=== PATIENT | male | born 1960 | race Two or more races ===

== ENCOUNTER 2016-11-27 11:50 | Inpatient (IN) | payer OTHER ==
[2016-11-27 15:26] VITALS: BMI 24.7
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
[2016-11-27] MEDS ORDERED: diphenhydrAMINE HCL 50 MG CAPSULE PO PRN (15:36)
[2016-11-27] MEDS ORDERED: guaiFENesin/D-METHORPHAN HB 10 ML UNIT-DOSE CUPS PO PRN (15:36)
[2016-11-27] MEDS ORDERED: ACETAMINOPHEN 325 MG TABLET (FP) PO PRN (15:36)
[2016-11-27] MEDS ORDERED: hydrOXYzine PAMOATE 50 MG CAPSULE (FP) PO PRN (15:36)
[2016-11-27] MEDS ORDERED: MENTHOL/PHENOL 1 EACH UD MM PRN (15:36)
[2016-11-27] MEDS ORDERED: MAGNESIUM CITRATE 300 ML BOTTLE PO PRN (15:36)
[2016-11-27] MEDS ORDERED: MAGNESIUM HYDROX 2400MG/30ML ORAL SUSPENSION 30 ML CUP PO PRN (15:36)
[2016-11-27] MEDS ORDERED: LOPERAMIDE HCL 2 MG CAPSULE PO PRN (15:36)
[2016-11-27] MEDS ORDERED: IBUPROFEN 400 MG TABLET (FP) PO PRN (15:36)
[2016-11-27] MEDS ORDERED: P-EPHED 60MG/TRIPROLIDI 2.5MG TABLET PO PRN (15:36)
[2016-11-27] MEDS ORDERED: MAG HYDROX/AL HYDROX/SIMETH 30 ML UNIT-DOSE CUP PO PRN (15:36)
[2016-11-27] MEDS ORDERED: NICOTINE POLACRILEX 4 MG GUM BC PRN (15:36)
[2016-11-27] MEDS ORDERED: ALBUTEROL SO4 6.7 GM HFA INHALER IH PRN (15:48)
[2016-11-27] MEDS ORDERED: chlordiazePOXIDE HCL 25 MG CAPSULE PO ONE (16:45)
[2016-11-27] MEDS: chlordiazePOXIDE HCL 25 MG CAPSULE PO SCH ×2 (18:46→22:21)
[2016-11-27] MEDS: THIAMINE HCL 100 MG TABLET (FP) PO SCH (22:21)
[2016-11-27 23:30] LABS: URINE APPEARANCE CLEAR; URINE BILIRUBIN NEGATIVE (NEGATIVE); URINE BLOOD NEGATIVE (NEGATIVE); URINE COLOR YELLOW; URINE GLUCOSE (UA) NEGATIVE (NEGATIVE); URINE KETONE TRACE (NEGATIVE); URINE LEUK ESTERASE NEGATIVE (NEGATIVE); URINE NITRITE NEGATIVE (NEGATIVE); URINE PROTEIN NEGATIVE (NEGATIVE); URINE UROBILINOGEN NEGATIVE E.U./dl (0.2-1.0)
[2016-11-28] MEDS: chlordiazePOXIDE HCL 25 MG CAPSULE PO SCH ×5 (05:28→22:20)
[2016-11-28 10:14] LABS: MCH 31.6 pg (25.7-33.7); MCHC 33.6 g/dl (32.0-35.9); MEAN CELL VOLUME 94.2 fl (80-96); MEAN PLT VOLUME 9.9 fl (7.5-11.1); PLATELET COUNT 288 K/MM3 (134-434); RDW 14.6 % (11.9-15.9); WHITE BLOOD COUNT 5.7 K/mm3 (4.0-10.0)
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
[2016-11-28] MEDS: PRENATAL VITAMINS W/ FOLIC ACID TABLET (FP) PO SCH (10:42)
--- NOTE | 2016-11-28 10:42 | PN ---
S CIWA - CIWA Score Nausea/Vomitin-Mild Nausea/No Vomiting Muscle Tremors: 4-Moderate,w/Arms Extend Anxiety: 3 Agitation: 3 Paroxysmal Sweats: 3 Orientation: 0-Oriented Tacttile Disturbances: 0-None Auditory Disturbances: 0-None Visual Disturbances: 0-None Headache: 0-None Present CIWA-Ar Total Score: 14 S Progress Note (SOAP) Subjective: Anxiety,tremors,sweating,interrupted sleep,restless Objective: 11/28/16 10:40 Vital Signs - 8 hr 11/28/16 11/28/16 11/28/16 03:08 06:26 09:29 Temperature 97.5 F L 96.8 F L Pulse Rate 86 104 H Respiratory 18 18 18 Rate Blood Pressure 132/98 127/89 Laboratory Tests 11/27/16 11/28/16 23:10 06:00 WBC 5.7 D RBC 4.92 Hgb 15.6 D Hct 46.4 MCV 94.2 MCHC 33.6 RDW 14.6 Plt Count 288 D MPV 9.9 Urine Color Yellow Urine Appearance Clear Urine pH 5.0 Ur Specific [place] 1.018 Urine Protein Negative Urine Glucose (UA) Negative Urine Ketones Trace H Urine Blood Negative Urine Nitrite Negative Urine Bilirubin Negative Urine Urobilinogen Negative Ur Leukocyte Esterase Negative labs noted Assessment: 11/28/16 10:41 Withdrawal sx. Plan: Continue detox
[2016-11-28 11:01] LABS: ALK PHOS 83 U/L (45-117); ANION GAP 10 (8-16); BILIRUBIN,TOTAL 1.6 mg/dL (0.2-1.0); CALCIUM 10.1 mg/dL (8.5-10.1); CO2 29 mmol/L (21-32); CREATININE 0.7 mg/dL (0.7-1.3); GLUCOSE,RANDOM 117 mg/dL (74-106); SGOT/AST 23 U/L (15-37); SGPT/ALT 39 U/L (12-78); TOT PROT 7.9 g/dl (6.4-8.2)
[2016-11-28] MEDS: THIAMINE HCL 100 MG TABLET (FP) PO SCH (22:19)
[2016-11-28] MEDS: ZOLPIDEM TARTRATE 5 MG TABLET PO PRN (22:20)
[2016-11-29] MEDS: chlordiazePOXIDE HCL 25 MG CAPSULE PO SCH ×2 (05:28→10:56)
--- NOTE | 2016-11-29 08:29 | EKG ---
Test Reason : Blood Pressure : / mmHG Vent. Rate : 076 BPM Atrial Rate : 076 BPM P-R Int : 158 ms QRS Dur : 104 ms QT Int : 416 ms P-R-T Axes : 049 061 067 degrees QTc Int : 468 ms NORMAL SINUS RHYTHM NORMAL ECG NO PREVIOUS ECGS AVAILABLE Confirmed by JOVANI BOB MD ([id number]) on 11/29/2016 8:28:46 AM Referred By: Confirmed By:JOVANI BOB MD
[2016-11-29] MEDS: PRENATAL VITAMINS W/ FOLIC ACID TABLET (FP) PO SCH (10:56)
[2016-11-29] MEDS: chlordiazePOXIDE HCL 25 MG CAPSULE PO PRN ×2 (12:23→20:15)
--- NOTE | 2016-11-29 12:30 | PN ---
[facility] CIWA - CIWA Score Nausea/Vomitin-Mild Nausea/No Vomiting Muscle Tremors: 3 Anxiety: 4-Mod. Anxious/Guarded Agitation: 2 Paroxysmal Sweats: 1-Minimal Palms Moist Orientation: 0-Oriented Tacttile Disturbances: 2-Mild Itch/Numbness/Burn Auditory Disturbances: 2-Mild Harshness/Frighten Visual Disturbances: 0-None Headache: 0-None Present CIWA-Ar Total Score: 15 BHS Progress Note (SOAP) Subjective: Interrupted sleep, Fatigue, Anxious, Diarrhea. Objective: PT. A & O X 3, OBSERVED AMBULATING ON UNIT. 11/29/16 12:27 Vital Signs Temperature 97.8 F 11/29/16 09:56 Pulse Rate 77 11/29/16 09:56 Respiratory Rate 18 11/29/16 09:56 Blood Pressure 122/86 11/29/16 09:56 O2 Sat by Pulse Oximetry (%) Laboratory Last Values WBC 5.7 K/mm3 (4.0-10.0) D 11/28/16 06:00 RBC 4.92 M/mm3 (4.00-5.60) 11/28/16 06:00 Hgb 15.6 GM/dL (11.7-16.9) D 11/28/16 06:00 Hct 46.4 % (35.4-49) 11/28/16 06:00 MCV 94.2 fl (80-96) 11/28/16 06:00 MCHC 33.6 g/dl (32.0-35.9) 11/28/16 06:00 RDW 14.6 % (11.9-15.9) 11/28/16 06:00 Plt Count 288 K/MM3 (134-434) D 11/28/16 06:00 MPV 9.9 fl (7.5-11.1) 11/28/16 06:00 Sodium 137 mmol/L (136-145) 11/28/16 06:00 Potassium 4.6 mmol/L (3.5-5.1) D 11/28/16 06:00 Chloride 98 mmol/L (98-107) 11/28/16 06:00 Carbon Dioxide 29 mmol/L (21-32) 11/28/16 06:00 Anion Gap 10 (8-16) 11/28/16 06:00 BUN 10 mg/dL (7-18) D 11/28/16 06:00 Creatinine 0.7 mg/dL (0.7-1.3) 11/28/16 06:00 Creat Clearance w eGFR > 60 (>60) 11/28/16 06:00 Random Glucose 117 mg/dL (74-106) H 11/28/16 06:00 Calcium 10.1 mg/dL (8.5-10.1) D 11/28/16 06:00 Total Bilirubin 1.6 mg/dL (0.2-1.0) H 11/28/16 06:00 AST 23 U/L (15-37) 11/28/16 06:00 ALT 39 U/L (12-78) D 11/28/16 06:00 Alkaline Phosphatase 83 U/L (45-117) 11/28/16 06:00 Total Protein 7.9 g/dl (6.4-8.2) D 11/28/16 06:00 Albumin 4.0 g/dl (3.4-5.0) D 11/28/16 06:00 Urine Color Yellow 11/27/16 23:10 Urine Appearance Clear 11/27/16 23:10 Urine pH 5.0 (5.0-8.0) 11/27/16 23:10 Ur Specific [place] 1.018 (1.001-1.035) 11/27/16 23:10 Urine Protein Negative (NEGATIVE) 11/27/16 23:10 Urine Glucose (UA) Negative (NEGATIVE) 11/27/16 23:10 Urine Ketones Trace (NEGATIVE) H 11/27/16 23:10 Urine Blood Negative (NEGATIVE) 11/27/16 23:10 Urine Nitrite Negative (NEGATIVE) 11/27/16 23:10 Urine Bilirubin Negative (NEGATIVE) 11/27/16 23:10 Urine Urobilinogen Negative E.U./dl (0.2-1.0) 11/27/16 23:10 Ur Leukocyte Esterase Negative (NEGATIVE) 11/27/16 23:10 RPR Titer Nonreactive (NONREACTIVE) 11/28/16 06:00 LABS NOTED. Assessment: 11/29/16 12:28 WITHDRAWAL SYMPTOMS. Plan: CONTINUE DETOX. PRN LIBRIUM (25 MG) FOR ANXIETY. ADVISED PATIENT TO FOLLOW-UP WITH [facility] / REHAB MEDICAL PROVIDER AFTER DISCHARGE FROM DETOX FOR GENERAL MEDICAL ASSESSMENT AND FOR ABNORMAL ADMISSION LAB VALUES.
[2016-11-29] MEDS: chlordiazePOXIDE 5 MG CAPSULE PO SCH ×2 (17:10→22:26)
[2016-11-29] MEDS: THIAMINE HCL 100 MG TABLET (FP) PO SCH (22:26)
[2016-11-29] MEDS: ZOLPIDEM TARTRATE 5 MG TABLET PO PRN (22:27)
[2016-11-30] MEDS: chlordiazePOXIDE 5 MG CAPSULE PO SCH (05:36)
[2016-11-30 09:19] VITALS: BP 110/77; PULSE 97; TEMP 96.4
--- NOTE | 2016-11-30 11:16 | DS ---
[facility] Detox Discharge Summary Admission Date: 11/27/16 Discharge Date: 11/30/16 - History Pertinent Past History: Asthma HTN - Physical Exam Results Vital Signs: Vital Signs Temperature 96.4 F L 11/30/16 09:19 Pulse Rate 97 H 11/30/16 09:19 Respiratory Rate 18 11/30/16 09:19 Blood Pressure 110/77 11/30/16 09:19 O2 Sat by Pulse Oximetry (%) Pertinent Admission Physical Exam Findings: Withdrawal sx. Laboratory Last Values WBC 5.7 K/mm3 (4.0-10.0) D 11/28/16 06:00 RBC 4.92 M/mm3 (4.00-5.60) 11/28/16 06:00 Hgb 15.6 GM/dL (11.7-16.9) D 11/28/16 06:00 Hct 46.4 % (35.4-49) 11/28/16 06:00 MCV 94.2 fl (80-96) 11/28/16 06:00 MCHC 33.6 g/dl (32.0-35.9) 11/28/16 06:00 RDW 14.6 % (11.9-15.9) 11/28/16 06:00 Plt Count 288 K/MM3 (134-434) D 11/28/16 06:00 MPV 9.9 fl (7.5-11.1) 11/28/16 06:00 Sodium 137 mmol/L (136-145) 11/28/16 06:00 Potassium 4.6 mmol/L (3.5-5.1) D 11/28/16 06:00 Chloride 98 mmol/L (98-107) 11/28/16 06:00 Carbon Dioxide 29 mmol/L (21-32) 11/28/16 06:00 Anion Gap 10 (8-16) 11/28/16 06:00 BUN 10 mg/dL (7-18) D 11/28/16 06:00 Creatinine 0.7 mg/dL (0.7-1.3) 11/28/16 06:00 Creat Clearance w eGFR > 60 (>60) 11/28/16 06:00 Random Glucose 117 mg/dL (74-106) H 11/28/16 06:00 Calcium 10.1 mg/dL (8.5-10.1) D 11/28/16 06:00 Total Bilirubin 1.6 mg/dL (0.2-1.0) H 11/28/16 06:00 AST 23 U/L (15-37) 11/28/16 06:00 ALT 39 U/L (12-78) D 11/28/16 06:00 Alkaline Phosphatase 83 U/L (45-117) 11/28/16 06:00 Total Protein 7.9 g/dl (6.4-8.2) D 11/28/16 06:00 Albumin 4.0 g/dl (3.4-5.0) D 11/28/16 06:00 Urine Color Yellow 11/27/16 23:10 Urine Appearance Clear 11/27/16 23:10 Urine pH 5.0 (5.0-8.0) 11/27/16 23:10 Ur Specific [place] 1.018 (1.001-1.035) 11/27/16 23:10 Urine Protein Negative (NEGATIVE) 11/27/16 23:10 Urine Glucose (UA) Negative (NEGATIVE) 11/27/16 23:10 Urine Ketones Trace (NEGATIVE) H 11/27/16 23:10 Urine Blood Negative (NEGATIVE) 11/27/16 23:10 Urine Nitrite Negative (NEGATIVE) 11/27/16 23:10 Urine Bilirubin Negative (NEGATIVE) 11/27/16 23:10 Urine Urobilinogen Negative E.U./dl (0.2-1.0) 11/27/16 23:10 Ur Leukocyte Esterase Negative (NEGATIVE) 11/27/16 23:10 RPR Titer Nonreactive (NONREACTIVE) 11/28/16 06:00 labs noted - Treatment Patient has Accepted a Rehab Referral to: 12 step meeting - Medication Discharge Medications: Ambulatory Orders Albuterol Sulfate Inhaler - [Ventolin Hfa Inhaler -] 2 inh PO Q4H PRN 11/27/16 Folic Acid - 1 mg PO DAILY 11/27/16 Multivitamins [Tab-A-Vit -] 1 tab PO DAILY 11/27/16 - Diagnosis (1) Alcohol dependence with uncomplicated withdrawal Status: Acute (2) Insomnia Status: Acute Qualifiers: Insomnia type: alcohol-induced Qualified Code(s): F10.982 - Alcohol use, unspecified with alcohol-induced sleep disorder (3) Nicotine dependence Status: Acute Qualifiers: Nicotine product type: cigarettes Substance use status: uncomplicated Qualified Code(s): F17.210 - Nicotine dependence, cigarettes, uncomplicated (4) Asthma Status: Chronic Qualifiers: Asthma severity: mild intermittent Asthma complication type: uncomplicated Qualified Code(s): J45.20 - Mild intermittent asthma, uncomplicated (5) HTN (hypertension) Status: Chronic Qualifiers: Hypertension type: essential hypertension Qualified Code(s): I10 - Essential (primary) hypertension - AMA Did Patient Leave Against Medical Advice: Yes
[2016-11-30] MEDS ORDERED: chlordiazePOXIDE HCL 10 MG CAPSULE PO SCH (17:00)
== END 2016-11-30 10:37 | disposition left against medical advice (07) | DRG 770 ==
LOC: YASAS 11:50 → Y3N 15:56
PROVIDERS: ADMIT Internal Medicine; ATTEND Internal Medicine
PROC: HZ2ZZZZ Detoxification Services for Substance Abuse Treatment (ICD-10-PCS; principal; 2016-11-27)
DX: F10.230 Alcohol dependence with withdrawal, uncomplicated (principal); F17.210 Nicotine dependence, cigarettes, uncomplicated; G47.00 Insomnia, unspecified; J45.20 Mild intermittent asthma, uncomplicated; J44.9 Chronic obstructive pulmonary disease, unspecified; I10 Essential (primary) hypertension; Z86.69 Personal history of other diseases of the nervous system and sense organs; Z91.5 Personal history of self-harm; Z59.0 Homelessness
CPT/HCPCS: 36415; 80053; 81003; 85027; 86593; 93005; 93010

== ENCOUNTER 2018-02-28 15:59 | Inpatient (IN) | payer OTHER ==
[2018-02-28 16:41] VITALS: BMI 25.1
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
[2018-02-28] MEDS ORDERED: guaiFENesin/D-METHORPHAN HB 10 ML UNIT-DOSE CUPS PO PRN (21:49)
[2018-02-28] MEDS ORDERED: MAGNESIUM HYDROX 2400MG/30ML ORAL SUSPENSION 30 ML CUP PO PRN (21:49)
[2018-02-28] MEDS ORDERED: MAG HYDROX/AL HYDROX/SIMETH 30 ML UNIT-DOSE CUP PO PRN (21:49)
[2018-02-28] MEDS ORDERED: MENTHOL/PHENOL 1 EACH UD MM PRN (21:49)
[2018-02-28] MEDS ORDERED: MAGNESIUM CITRATE 300 ML BOTTLE PO PRN (21:49)
[2018-02-28] MEDS ORDERED: P-EPHED 60MG/TRIPROLIDI 2.5MG TABLET PO PRN (21:49)
[2018-02-28] MEDS ORDERED: ACETAMINOPHEN 325 MG TABLET (FP) PO PRN (21:49)
[2018-02-28] MEDS ORDERED: LOPERAMIDE HCL 2 MG CAPSULE PO PRN (21:49)
[2018-02-28] MEDS ORDERED: MELATONIN 5 MG TABLETS PO PRN (22:00)
[2018-02-28] MEDS: chlordiazePOXIDE HCL 25 MG CAPSULE PO SCH (22:57)
[2018-02-28] MEDS: THIAMINE HCL 100 MG TABLET (FP) PO SCH (22:57)
[2018-03-01] LABS: URINE APPEARANCE CLEAR; URINE BILIRUBIN NEGATIVE (<2.0 mg/dL); URINE COLOR YELLOW; URINE GLUCOSE (UA) NEGATIVE (NEGATIVE); URINE KETONE NEGATIVE (NEGATIVE); URINE LEUK ESTERASE NEGATIVE (NEGATIVE); URINE NITRITE NEGATIVE (NEGATIVE); URINE PROTEIN NEGATIVE (NEGATIVE); URINE UROBILINOGEN NEGATIVE mg/dL (0.2-1.0)
[2018-03-01] MEDS: chlordiazePOXIDE HCL 25 MG CAPSULE PO SCH ×4 (05:44→22:43)
[2018-03-01 09:52] LABS: ALBUMIN 3.4 g/dl (3.4-5.0); ALK PHOS 69 U/L (45-117); ANION GAP 7 (8-16); BILIRUBIN,TOTAL 1.3 mg/dL (0.2-1.0); BLOOD UREA NITROGEN 8 mg/dL (7-18); CALCIUM 8.8 mg/dL (8.5-10.1); CHLORIDE 106 mmol/L (98-107); CO2 31 mmol/L (21-32); CREATININE 0.6 mg/dL (0.7-1.3); GLUCOSE,RANDOM 103 mg/dL (74-106); POTASSIUM 4.3 mmol/L (3.5-5.1); SGOT/AST 29 U/L (15-37); SGPT/ALT 43 U/L (12-78); SODIUM 144 mmol/L (136-145)
[2018-03-01 10:02] LABS: HEMOGLOBIN 13.8 GM/dL (11.7-16.9); MCH 32.1 pg (25.7-33.7); MCHC 33.7 g/dl (32.0-35.9); MEAN CELL VOLUME 95.2 fl (80-96); MEAN PLT VOLUME 9.2 fl (7.5-11.1); PLATELET COUNT 260 K/MM3 (134-434); RDW 14.8 % (11.9-15.9); WHITE BLOOD COUNT 4.6 K/mm3 (4.0-10.0)
[2018-03-01] MEDS: NICOTINE 14 MG/24 HOURS TOPICAL PATCH TD SCH (10:25)
[2018-03-01] MEDS: PRENATAL VITAMINS W/ FOLIC ACID TABLET (FP) PO SCH (10:26)
[2018-03-01] MEDS: NICOTINE POLACRILEX 2 MG GUM BC PRN ×3 (10:26→17:24)
--- NOTE | 2018-03-01 11:20 | PN ---
S CIWA - CIWA Score Nausea/Vomitin (C/O N/V/D) Muscle Tremors: 4-Moderate,w/Arms Extend Anxiety: 4-Mod. Anxious/Guarded Agitation: 3 Paroxysmal Sweats: 1-Minimal Palms Moist Orientation: 0-Oriented Tacttile Disturbances: 0-None Auditory Disturbances: 0-None Visual Disturbances: 0-None Headache: 0-None Present CIWA-Ar Total Score: 17 BHS Progress Note (SOAP) Subjective: C/O ANXIETY,SWEATS,NAUSEA,VOMITING DIARRHEA. Objective: 03/01/18 11:18 Vital Signs 03/01/18 03/01/18 03/01/18 03:30 04:00 04:30 Temperature Pulse Rate 94 H 89 88 Respiratory 18 18 18 Rate Blood Pressure 03/01/18 03/01/18 03/01/18 05:00 05:30 06:00 Temperature Pulse Rate 85 80 69 Respiratory 18 18 18 Rate Blood Pressure 03/01/18 03/01/18 03/01/18 06:14 06:30 07:00 Temperature 98.3 F Pulse Rate 69 71 70 Respiratory 18 18 18 Rate Blood Pressure 127/79 03/01/18 03/01/18 03/01/18 07:30 08:00 08:30 Temperature Pulse Rate 70 68 70 Respiratory 18 18 16 Rate Blood Pressure 03/01/18 09:08 Temperature 98.3 F Pulse Rate 75 Respiratory 16 Rate Blood Pressure 103/67 Laboratory Tests 02/28/18 03/01/18 03/01/18 10:53 07:00 07:00 WBC 4.6 RBC 4.30 Hgb 13.8 Hct 41.0 MCV 95.2 MCH 32.1 MCHC 33.7 RDW 14.8 Plt Count 260 MPV 9.2 Sodium 144 Potassium 4.3 Chloride 106 Carbon Dioxide 31 Anion Gap 7 L BUN 8 Creatinine 0.6 L Creat Clearance w eGFR > 60 Random Glucose 103 Calcium 8.8 Total Bilirubin 1.3 H AST 29 D ALT 43 Alkaline Phosphatase 69 Total Protein 6.0 L Albumin 3.4 Urine Color Yellow Urine Appearance Clear Urine pH 5.0 Ur Specific [place] 1.012 Urine Protein Negative Urine Glucose (UA) Negative Urine Ketones Negative Urine Blood Negative Urine Nitrite Negative Urine Bilirubin Negative Urine Urobilinogen Negative Ur Leukocyte Esterase Negative RPR Titer 03/01/18 07:00 WBC RBC Hgb Hct MCV MCH MCHC RDW Plt Count MPV Sodium Potassium Chloride Carbon Dioxide Anion Gap BUN Creatinine Creat Clearance w eGFR Random Glucose Calcium Total Bilirubin AST ALT Alkaline Phosphatase Total Protein Albumin Urine Color Urine Appearance Urine pH Ur Specific [place] Urine Protein Urine Glucose (UA) Urine Ketones Urine Blood Urine Nitrite Urine Bilirubin Urine Urobilinogen Ur Leukocyte Esterase RPR Titer Nonreactive Assessment: 03/01/18 11:18 WITHDRAWAL SX Plan: CONTINUE DETOX IMODIUM PRN AND ZOFRAN PRN DIRECTED FOR D/N/V.
[2018-03-01] MEDS ORDERED: ALBUTEROL SO4 8 GM HFA INHALER IH PRN (11:23)
[2018-03-01] MEDS: chlordiazePOXIDE HCL 25 MG CAPSULE PO PRN (12:19)
[2018-03-01] MEDS ORDERED: BUDESONIDE/FORMETEROL FUMARATE 160/4.5 mcg INHALER IH ONE ×2 (14:10→14:51)
[2018-03-01] MEDS ORDERED: PANTOPRAZOLE 40 MG TABLET (FP) PO SCH (15:00)
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
[2018-03-01] MEDS: PANTOPRAZOLE 20 MG TABLET (FP) PO SCH (15:10)
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
[2018-03-01] MEDS: risperiDONE 1 MG TABLET (FP) PO SCH (22:43)
[2018-03-01] MEDS: THIAMINE HCL 100 MG TABLET (FP) PO SCH (22:43)
[2018-03-01] MEDS: MIRTAZAPINE 15 MG TABLET (FP) PO SCH (22:43)
[2018-03-01] MEDS: BUDESONIDE/FORMETEROL FUMARATE 160/4.5 mcg INHALER IH SCH (22:44)
[2018-03-02] MEDS: chlordiazePOXIDE HCL 25 MG CAPSULE PO SCH ×3 (06:04→16:51)
[2018-03-02] MEDS: IBUPROFEN 400 MG TABLET (FP) PO PRN (06:05)
[2018-03-02] MEDS: NICOTINE POLACRILEX 2 MG GUM BC PRN ×4 (06:56→19:20)
[2018-03-02] MEDS: BUDESONIDE/FORMETEROL FUMARATE 160/4.5 mcg INHALER IH SCH ×2 (10:19→22:11)
[2018-03-02] MEDS: risperiDONE 1 MG TABLET (FP) PO SCH ×2 (10:19→22:11)
[2018-03-02] MEDS: PANTOPRAZOLE 20 MG TABLET (FP) PO SCH (10:19)
[2018-03-02] MEDS: NICOTINE 14 MG/24 HOURS TOPICAL PATCH TD SCH (10:19)
[2018-03-02] MEDS: PRENATAL VITAMINS W/ FOLIC ACID TABLET (FP) PO SCH (10:19)
[2018-03-02] MEDS: chlordiazePOXIDE HCL 25 MG CAPSULE PO PRN (15:20)
--- NOTE | 2018-03-02 16:42 | PN ---
[facility] CIWA - CIWA Score Nausea/Vomitin-No Nausea/No Vomiting Muscle Tremors: 3 Anxiety: 4-Mod. Anxious/Guarded Agitation: 1-Slight > Activity Paroxysmal Sweats: 3 Orientation: 0-Oriented Tacttile Disturbances: 2-Mild Itch/Numbness/Burn Auditory Disturbances: 0-None Visual Disturbances: 1-Very Mild Sensitivity Headache: 0-None Present CIWA-Ar Total Score: 14 BHS Progress Note (SOAP) Subjective: Tremors, Sweating, H/A, Fatigue, Diarrhea. Objective: PATIENT A & O X 3, OBSERVED AMBULATING ON UNIT. NO ACUTE DISTRESS. 03/02/18 16:40 Vital Signs Temperature 98.4 F 03/02/18 13:19 Pulse Rate 85 03/02/18 13:19 Respiratory Rate 18 03/02/18 13:19 Blood Pressure 124/85 03/02/18 13:19 O2 Sat by Pulse Oximetry (%) Laboratory Tests 02/28/18 03/01/18 03/01/18 10:53 07:00 07:00 WBC 4.6 RBC 4.30 Hgb 13.8 Hct 41.0 MCV 95.2 MCH 32.1 MCHC 33.7 RDW 14.8 Plt Count 260 MPV 9.2 Sodium 144 Potassium 4.3 Chloride 106 Carbon Dioxide 31 Anion Gap 7 L BUN 8 Creatinine 0.6 L Creat Clearance w eGFR > 60 Random Glucose 103 Calcium 8.8 Total Bilirubin 1.3 H AST 29 D ALT 43 Alkaline Phosphatase 69 Total Protein 6.0 L Albumin 3.4 Urine Color Yellow Urine Appearance Clear Urine pH 5.0 Ur Specific [place] 1.012 Urine Protein Negative Urine Glucose (UA) Negative Urine Ketones Negative Urine Blood Negative Urine Nitrite Negative Urine Bilirubin Negative Urine Urobilinogen Negative Ur Leukocyte Esterase Negative RPR Titer 03/01/18 07:00 WBC RBC Hgb Hct MCV MCH MCHC RDW Plt Count MPV Sodium Potassium Chloride Carbon Dioxide Anion Gap BUN Creatinine Creat Clearance w eGFR Random Glucose Calcium Total Bilirubin AST ALT Alkaline Phosphatase Total Protein Albumin Urine Color Urine Appearance Urine pH Ur Specific [place] Urine Protein Urine Glucose (UA) Urine Ketones Urine Blood Urine Nitrite Urine Bilirubin Urine Urobilinogen Ur Leukocyte Esterase RPR Titer Nonreactive LABS NOTED. Assessment: 03/02/18 16:41 WITHDRAWAL SYMPTOMS. Plan: CONTINUE DETOX. INCREASE DAILY PO FLUID INTAKE.
[2018-03-02] MEDS: chlordiazePOXIDE 5 MG CAPSULE PO SCH (22:11)
[2018-03-02] MEDS: MIRTAZAPINE 15 MG TABLET (FP) PO SCH (22:11)
[2018-03-02] MEDS: THIAMINE HCL 100 MG TABLET (FP) PO SCH (22:12)
[2018-03-03] MEDS: chlordiazePOXIDE HCL 25 MG CAPSULE PO PRN (01:02)
[2018-03-03] MEDS: IBUPROFEN 400 MG TABLET (FP) PO PRN (02:33)
[2018-03-03] MEDS: chlordiazePOXIDE 5 MG CAPSULE PO SCH ×2 (05:05→10:31)
[2018-03-03] MEDS: NICOTINE POLACRILEX 2 MG GUM BC PRN ×2 (06:43→10:35)
[2018-03-03] MEDS: PRENATAL VITAMINS W/ FOLIC ACID TABLET (FP) PO SCH (10:30)
[2018-03-03] MEDS: BUDESONIDE/FORMETEROL FUMARATE 160/4.5 mcg INHALER IH SCH (10:31)
[2018-03-03] MEDS: PANTOPRAZOLE 20 MG TABLET (FP) PO SCH (10:31)
[2018-03-03] MEDS: risperiDONE 1 MG TABLET (FP) PO SCH (10:31)
[2018-03-03] MEDS: NICOTINE 14 MG/24 HOURS TOPICAL PATCH TD SCH (10:34)
--- NOTE | 2018-03-03 12:52 | PN ---
BHS Progress Note (SOAP) Subjective: pt states leaving tomorrow, will go see PCP for h/o lung cancer, pt requesting to make phone call to [place]- Objective: 03/03/18 13:11 Vital Signs - 24 hr 03/02/18 03/02/18 03/02/18 13:19 18:06 22:10 Temperature 98.4 F 97.0 F L 97.4 F L Pulse Rate 85 91 H 92 H Respiratory 18 16 18 Rate Blood Pressure 124/85 125/80 132/84 03/03/18 03/03/18 03/03/18 00:33 03:40 06:15 Temperature 97.1 F L Pulse Rate 65 Respiratory 18 18 18 Rate Blood Pressure 125/86 03/03/18 09:14 Temperature 96.9 F L Pulse Rate 83 Respiratory 16 Rate Blood Pressure 140/96 Laboratory Tests 02/28/18 03/01/18 03/01/18 10:53 07:00 07:00 WBC 4.6 RBC 4.30 Hgb 13.8 Hct 41.0 MCV 95.2 MCH 32.1 MCHC 33.7 RDW 14.8 Plt Count 260 MPV 9.2 Sodium 144 Potassium 4.3 Chloride 106 Carbon Dioxide 31 Anion Gap 7 L BUN 8 Creatinine 0.6 L Creat Clearance w eGFR > 60 Random Glucose 103 Calcium 8.8 Total Bilirubin 1.3 H AST 29 D ALT 43 Alkaline Phosphatase 69 Total Protein 6.0 L Albumin 3.4 Urine Color Yellow Urine Appearance Clear Urine pH 5.0 Ur Specific [place] 1.012 Urine Protein Negative Urine Glucose (UA) Negative Urine Ketones Negative Urine Blood Negative Urine Nitrite Negative Urine Bilirubin Negative Urine Urobilinogen Negative Ur Leukocyte Esterase Negative RPR Titer 03/01/18 07:00 WBC RBC Hgb Hct MCV MCH MCHC RDW Plt Count MPV Sodium Potassium Chloride Carbon Dioxide Anion Gap BUN Creatinine Creat Clearance w eGFR Random Glucose Calcium Total Bilirubin AST ALT Alkaline Phosphatase Total Protein Albumin Urine Color Urine Appearance Urine pH Ur Specific [place] Urine Protein Urine Glucose (UA) Urine Ketones Urine Blood Urine Nitrite Urine Bilirubin Urine Urobilinogen Ur Leukocyte Esterase RPR Titer Nonreactive labs WNL. decreased liver enzymes per pt, was near 100 earlier Assessment: 03/03/18 13:11 pt states doing well- wants to go home Plan: d.c anticipated for tomorrow
[2018-03-03 13:24] VITALS: BP 140/100; PULSE 81; TEMP 96
--- NOTE | 2018-03-03 14:22 | DS ---
[facility] Detox Discharge Summary Admission Date: 02/28/18 Discharge Date: 03/03/18 - History Present History: Alcohol Dependence - Physical Exam Results Vital Signs: Vital Signs Temperature 96 F L 03/03/18 13:22 Pulse Rate 81 03/03/18 13:22 Respiratory Rate 20 03/03/18 13:22 Blood Pressure 140/100 03/03/18 13:22 O2 Sat by Pulse Oximetry (%) Pertinent Admission Physical Exam Findings: 58 years old male with a long history of alcohol dependence is seeking admission to detox. Patient has been in previous detox, last at [facility] and reports insignificant period of sobriety.Pt wants to leave AMA today- gives no reason. Was given a phone call earlier today to [place] as he was threatening to leave if he did not get the phone call- now wants to leave - Treatment Hospital Course: Detox Protocol Followed - Medication Discharge Medications: Ambulatory Orders Albuterol Sulfate Inhaler - [Ventolin Hfa Inhaler -] 2 inh PO Q6H PRN 11/27/16 Folic Acid - 1 mg PO DAILY 11/27/16 Multivitamins [Tab-A-Vit -] 1 tab PO DAILY 11/27/16 Budesonide/Formeterol Fumarate [SYMBICORT 160/4.5mcg -] 2 inh PO BID 03/01/18 Pantoprazole Sodium [Protonix -] 20 mg PO DAILY 03/01/18 - Diagnosis (1) Alcohol dependence with uncomplicated withdrawal Current Visit: Yes Status: Acute - AMA Did Patient Leave Against Medical Advice: Yes
[2018-03-03] MEDS ORDERED: chlordiazePOXIDE HCL 10 MG CAPSULE PO SCH (23:00)
--- NOTE | 2018-03-04 11:11 | EKG ---
Test Reason : Blood Pressure : / mmHG Vent. Rate : 069 BPM Atrial Rate : 069 BPM P-R Int : 172 ms QRS Dur : 100 ms QT Int : 420 ms P-R-T Axes : 061 064 074 degrees QTc Int : 450 ms NORMAL SINUS RHYTHM NORMAL ECG WHEN COMPARED WITH ECG OF 27-NOV-2016 17:49, NO SIGNIFICANT CHANGE WAS FOUND Confirmed by JOVANI BOB MD ([id number]) on 03/04/2018 11:10:32 AM Referred By: Confirmed By:JOVANI BOB MD
== END 2018-03-03 14:54 | disposition left against medical advice (07) | DRG 770 ==
LOC: YASAS 15:59 → Y3N 19:15
PROVIDERS: ADMIT Surgery; ATTEND Surgery
PROC: HZ2ZZZZ Detoxification Services for Substance Abuse Treatment (ICD-10-PCS; principal; 2018-02-28)
DX: F10.230 Alcohol dependence with withdrawal, uncomplicated (principal); F12.10 Cannabis abuse, uncomplicated; F17.210 Nicotine dependence, cigarettes, uncomplicated; F10.982 Alcohol use, unspecified with alcohol-induced sleep disorder; F31.9 Bipolar disorder, unspecified; F32.9 Major depressive disorder, single episode, unspecified; I10 Essential (primary) hypertension; J45.909 Unspecified asthma, uncomplicated; Z91.5 Personal history of self-harm
CPT/HCPCS: 36415; 80053; 81003; 85027; 86593; 93005; 93010; J2794

== ENCOUNTER 2018-04-21 09:01 | Inpatient (IN) | payer OTHER ==
[2018-04-21 09:18] VITALS: BMI 24.5
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
[2018-04-21] MEDS ORDERED: diazePAM 5 MG TABLET PO PRN (11:05)
[2018-04-21] MEDS ORDERED: P-EPHED 60MG/TRIPROLIDI 2.5MG TABLET PO PRN (11:05)
[2018-04-21] MEDS ORDERED: hydrOXYzine PAMOATE 50 MG CAPSULE (FP) PO PRN (11:05)
[2018-04-21] MEDS ORDERED: guaiFENesin/D-METHORPHAN HB 10 ML UNIT-DOSE CUPS PO PRN (11:05)
[2018-04-21] MEDS ORDERED: MAGNESIUM CITRATE 300 ML BOTTLE PO PRN (11:05)
[2018-04-21] MEDS ORDERED: NICOTINE POLACRILEX 2 MG GUM BUC PRN (11:05)
[2018-04-21] MEDS ORDERED: MAGNESIUM HYDROX 2400MG/30ML ORAL SUSPENSION 30 ML CUP PO PRN (11:05)
[2018-04-21] MEDS ORDERED: IBUPROFEN 400 MG TABLET (FP) PO PRN (11:05)
[2018-04-21] MEDS ORDERED: diazePAM 5 MG TABLET PO ONE (11:05)
[2018-04-21] MEDS ORDERED: MAG HYDROX/AL HYDROX/SIMETH 30 ML UNIT-DOSE CUP PO PRN (11:05)
[2018-04-21] MEDS ORDERED: LOPERAMIDE HCL 2 MG CAPSULE PO PRN (11:05)
[2018-04-21] MEDS ORDERED: ACETAMINOPHEN 325 MG TABLET (FP) PO PRN (11:05)
[2018-04-21] MEDS ORDERED: MENTHOL/PHENOL 1 EACH UD MM PRN (11:05)
[2018-04-21] MEDS ORDERED: ALBUTEROL SO4 8 GM HFA INHALER IH PRN (11:07)
[2018-04-21] MEDS: diazePAM 5 MG TABLET PO SCH ×2 (14:13→23:05)
[2018-04-21] MEDS ORDERED: THIAMINE HCL 100 MG TABLET (FP) PO SCH (22:00)
[2018-04-21] MEDS ORDERED: MELATONIN 5 MG TABLETS PO PRN (22:00)
[2018-04-21] MEDS: BUDESONIDE/FORMETEROL FUMARATE 160/4.5 mcg INHALER IH SCH (23:05)
[2018-04-22] MEDS: diazePAM 5 MG TABLET PO SCH (05:19)
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
[2018-04-22] MEDS ORDERED: risperiDONE 1 MG TABLET (FP) PO SCH (10:00)
[2018-04-22] MEDS ORDERED: PRENATAL VITAMINS W/ FOLIC ACID TABLET (FP) PO SCH (10:00)
[2018-04-22] MEDS ORDERED: NICOTINE 21 MG/24 HOURS TOPICAL PATCH TD SCH (10:00)
--- NOTE | 2018-04-22 10:02 | EKG ---
Test Reason : Blood Pressure : / mmHG Vent. Rate : 089 BPM Atrial Rate : 089 BPM P-R Int : 126 ms QRS Dur : 114 ms QT Int : 382 ms P-R-T Axes : 045 064 061 degrees QTc Int : 464 ms NORMAL SINUS RHYTHM LOW VOLTAGE QRS BORDERLINE ECG WHEN COMPARED WITH ECG OF 28-FEB-2018 22:32, NO SIGNIFICANT CHANGE WAS FOUND Confirmed by JOVANI BOB MD ([id number]) on 04/22/2018 10:02:26 AM Referred By: Confirmed By:JOVANI BOB MD
[2018-04-22] MEDS: BUDESONIDE/FORMETEROL FUMARATE 160/4.5 mcg INHALER IH SCH (10:11)
[2018-04-22 10:34] LABS: HEMATOCRIT 46.8 % (35.4-49); HEMOGLOBIN 15.4 GM/dL (11.7-16.9); MEAN PLT VOLUME 10.1 fl (7.5-11.1); PLATELET COUNT 152 K/MM3 (134-434); RBC 4.98 M/mm3 (4.00-5.60); RDW 14.8 % (11.9-15.9); WHITE BLOOD COUNT 5.3 K/mm3 (4.0-10.0)
[2018-04-22 10:35] LABS: URINE APPEARANCE CLEAR; URINE BILIRUBIN NEGATIVE (<2.0 mg/dL); URINE COLOR LTYELLOW; URINE GLUCOSE (UA) NEGATIVE (NEGATIVE); URINE KETONE NEGATIVE (NEGATIVE); URINE LEUK ESTERASE NEGATIVE (NEGATIVE); URINE NITRITE NEGATIVE (NEGATIVE); URINE PROTEIN NEGATIVE (NEGATIVE); URINE UROBILINOGEN NEGATIVE mg/dL (0.2-1.0)
[2018-04-22 10:57] LABS: SICKLE CELL SCREEN POSITIVE (NEGATIVE)
[2018-04-22 11:02] LABS: CHLORIDE 103 mmol/L (98-107); POTASSIUM 4.2 mmol/L (3.5-5.1); SODIUM 143 mmol/L (136-145)
[2018-04-22 11:09] LABS: ALBUMIN 3.9 g/dl (3.4-5.0); ALK PHOS 74 U/L (45-117); ANION GAP 14 MMOL/L (8-16); BILIRUBIN,TOTAL 1.2 mg/dL (0.2-1.0); BLOOD UREA NITROGEN 12 mg/dL (7-18); CALCIUM 9.4 mg/dL (8.5-10.1); CO2 26 mmol/L (21-32); CREATININE 0.8 mg/dL (0.55-1.3); GLUCOSE,RANDOM 204 mg/dL (74-106); SGOT/AST 67 U/L (15-37); SGPT/ALT 107 U/L (13-61)
[2018-04-22 13:09] VITALS: BP 121/79; PULSE 98; TEMP 97.2
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
[2018-04-22] MEDS ORDERED: MIRTAZAPINE 15 MG TABLET (FP) PO SCH (22:00)
[2018-04-23] MEDS ORDERED: diazePAM 5 MG TABLET PO SCH (10:00)
[2018-04-25] MEDS ORDERED: diazePAM 5 MG TABLET PO SCH (10:00)
== END 2018-04-22 14:45 | disposition left against medical advice (07) | DRG 770 ==
LOC: YASAS 09:01 → Y6N 12:31
PROC: HZ2ZZZZ Detoxification Services for Substance Abuse Treatment (ICD-10-PCS; principal; 2018-04-21)
DX: F10.230 Alcohol dependence with withdrawal, uncomplicated (principal); F12.10 Cannabis abuse, uncomplicated; F17.210 Nicotine dependence, cigarettes, uncomplicated; F31.9 Bipolar disorder, unspecified; F41.8 Other specified anxiety disorders; E86.0 Dehydration; I10 Essential (primary) hypertension; J44.9 Chronic obstructive pulmonary disease, unspecified; J45.22 Mild intermittent asthma with status asthmaticus; R01.1 Cardiac murmur, unspecified; D57.1 Sickle-cell disease without crisis; Z91.5 Personal history of self-harm
CPT/HCPCS: 36415; 80053; 81003; 83021; 85027; 85660; 86593; 93005; 93010; J2794

== ENCOUNTER 2018-05-22 09:31 | Inpatient (IN) | payer OTHER ==
[2018-05-22 09:58] VITALS: BMI 24.3
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
[2018-05-22] MEDS ORDERED: MAG HYDROX/AL HYDROX/SIMETH 30 ML UNIT-DOSE CUP PO PRN (11:38)
[2018-05-22] MEDS ORDERED: MAGNESIUM HYDROX 2400MG/30ML ORAL SUSPENSION 30 ML CUP PO PRN (11:38)
[2018-05-22] MEDS ORDERED: MENTHOL/PHENOL 1 EACH UD MM PRN (11:38)
[2018-05-22] MEDS ORDERED: guaiFENesin/D-METHORPHAN HB 10 ML UNIT-DOSE CUPS PO PRN (11:38)
[2018-05-22] MEDS ORDERED: hydrOXYzine PAMOATE 50 MG CAPSULE (FP) PO PRN (11:38)
[2018-05-22] MEDS ORDERED: ACETAMINOPHEN 325 MG TABLET (FP) PO PRN (11:38)
[2018-05-22] MEDS ORDERED: LOPERAMIDE HCL 2 MG CAPSULE PO PRN (11:38)
[2018-05-22] MEDS ORDERED: MAGNESIUM CITRATE 300 ML BOTTLE PO PRN (11:38)
[2018-05-22] MEDS ORDERED: predniSONE 20 MG TABLET (UD) PO ONE (12:45)
[2018-05-22] MEDS: NICOTINE 21 MG/24 HOURS TOPICAL PATCH TD SCH (13:47)
[2018-05-22] MEDS: BUDESONIDE/FORMETEROL FUMARATE 160/4.5 mcg INHALER IH SCH ×2 (13:47→22:34)
[2018-05-22] MEDS: chlordiazePOXIDE HCL 25 MG CAPSULE PO PRN (13:47)
[2018-05-22] MEDS: NICOTINE POLACRILEX 2 MG GUM BUC PRN (13:47)
[2018-05-22] MEDS: chlordiazePOXIDE HCL 25 MG CAPSULE PO SCH ×2 (17:59→22:32)
[2018-05-22] MEDS ORDERED: MELATONIN 5 MG TABLETS PO PRN (22:00)
[2018-05-22] MEDS: THIAMINE HCL 100 MG TABLET (FP) PO SCH (22:32)
[2018-05-23] MEDS: ALBUTEROL SO4 2.5/IPRATROPIUM 0.5 INH SOL 3 ML VIAL.NEB. NEB PRN (01:10)
[2018-05-23] MEDS: chlordiazePOXIDE HCL 25 MG CAPSULE PO SCH ×4 (05:52→22:41)
[2018-05-23] MEDS: ALBUTEROL SO4 8 GM HFA INHALER IH PRN (05:54)
--- NOTE | 2018-05-23 09:23 | EKG ---
Test Reason : Blood Pressure : / mmHG Vent. Rate : 121 BPM Atrial Rate : 121 BPM P-R Int : 146 ms QRS Dur : 102 ms QT Int : 322 ms P-R-T Axes : 077 075 062 degrees QTc Int : 457 ms POOR DATA QUALITY, INTERPRETATION MAY BE ADVERSELY AFFECTED SINUS TACHYCARDIA OTHERWISE NORMAL ECG WHEN COMPARED WITH ECG OF 21-APR-2018 12:45, NO SIGNIFICANT CHANGE WAS FOUND Confirmed by SANDRA WU, SANDRO ([id number]) on 05/23/2018 9:23:06 AM Referred By: Confirmed By:SANDRO FLORES MD
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
[2018-05-23] MEDS ORDERED: predniSONE 10 MG TABLET (UD) PO ONE (10:00)
[2018-05-23 10:43] LABS: HEMATOCRIT 42.3 % (35.4-49); HEMOGLOBIN 13.8 GM/dL (11.7-16.9); MCH 30.9 pg (25.7-33.7); MCHC 32.7 g/dl (32.0-35.9); MEAN CELL VOLUME 94.4 fl (80-96); MEAN PLT VOLUME 9.9 fl (7.5-11.1); PLATELET COUNT 214 K/MM3 (134-434); RBC 4.48 M/mm3 (4.00-5.60); RDW 13.7 % (11.9-15.9); WHITE BLOOD COUNT 5.5 K/mm3 (4.0-10.0)
[2018-05-23] MEDS: PRENATAL VITAMINS W/ FOLIC ACID TABLET (FP) PO SCH (10:43)
[2018-05-23] MEDS: BUDESONIDE/FORMETEROL FUMARATE 160/4.5 mcg INHALER IH SCH ×2 (10:43→22:40)
[2018-05-23 10:46] LABS: ALBUMIN 3.4 g/dl (3.4-5.0); ALK PHOS 90 U/L (45-117); ANION GAP 15 MMOL/L (8-16); BILIRUBIN,TOTAL 0.8 mg/dL (0.2-1); BLOOD UREA NITROGEN 11 mg/dL (7-18); CALCIUM 9.9 mg/dL (8.5-10.1); CHLORIDE 98 mmol/L (98-107); CO2 25 mmol/L (21-32); CREATININE 0.6 mg/dL (0.55-1.3); GLUCOSE,RANDOM 155 mg/dL (74-106); POTASSIUM 3.8 mmol/L (3.5-5.1); SGOT/AST 30 U/L (15-37); SGPT/ALT 29 U/L (13-61); SODIUM 138 mmol/L (136-145); TOT PROT 6.8 g/dl (6.4-8.2)
[2018-05-23] MEDS: risperiDONE 1 MG TABLET (FP) PO SCH ×2 (10:46→22:40)
[2018-05-23] MEDS: GABAPENTIN 300 MG CAPSULE (FP) PO SCH ×2 (10:46→22:40)
[2018-05-23] MEDS: NICOTINE 21 MG/24 HOURS TOPICAL PATCH TD SCH (10:56)
[2018-05-23] MEDS: NICOTINE POLACRILEX 2 MG GUM BUC PRN ×3 (12:23→22:44)
--- NOTE | 2018-05-23 13:26 | PN ---
S CIWA - CIWA Score Nausea/Vomitin Muscle Tremors: 4-Moderate,w/Arms Extend Anxiety: 4-Mod. Anxious/Guarded Agitation: 3 Paroxysmal Sweats: 3 Orientation: 0-Oriented Tacttile Disturbances: 1-Very Mild Itch/Numbness Auditory Disturbances: 0-None Visual Disturbances: 0-None Headache: 0-None Present CIWA-Ar Total Score: 18 BHS Progress Note (SOAP) Subjective: Tremor, nervousness, sweating, interrupted sleep Objective: 05/23/18 13:23 Last Vital Signs Temp Pulse Resp BP Pulse Ox 98.6 F 98 H 18 97/67 05/23/18 10:27 05/23/18 10:27 05/23/18 10:27 05/23/18 10:27 Noted with hypotension Laboratory Tests 05/23/18 05/23/18 05/23/18 06:00 06:00 06:00 WBC 5.5 RBC 4.48 Hgb 13.8 Hct 42.3 MCV 94.4 MCH 30.9 MCHC 32.7 RDW 13.7 Plt Count 214 D MPV 9.9 Sodium 138 Potassium 3.8 Chloride 98 Carbon Dioxide 25 Anion Gap 15 BUN 11 Creatinine 0.6 Creat Clearance w eGFR > 60 Random Glucose 155 H Calcium 9.9 Total Bilirubin 0.8 AST 30 ALT 29 Alkaline Phosphatase 90 Total Protein 6.8 Albumin 3.4 RPR Titer Nonreactive Labs reviewed: serum glucose 155mg/dl Assessment: 05/23/18 13:25 Withdrawal symptoms Noted with hyperglycemia Plan: Continue detox Hyperglycemia: repeat fasting glucose, send HbA1c
--- NOTE | 2018-05-23 15:37 | EKG ---
Test Reason : Blood Pressure : / mmHG Vent. Rate : 101 BPM Atrial Rate : 101 BPM P-R Int : 144 ms QRS Dur : 106 ms QT Int : 354 ms P-R-T Axes : 066 064 061 degrees QTc Int : 459 ms SINUS TACHYCARDIA LOW VOLTAGE QRS BORDERLINE ECG WHEN COMPARED WITH ECG OF 22-MAY-2018 13:17, NO SIGNIFICANT CHANGE WAS FOUND Confirmed by SANDRO FLORES MD ([id number]) on 05/23/2018 3:37:34 PM Referred By: Confirmed By:SANDRO FLORES MD
[2018-05-23 17:57] LABS: URINE APPEARANCE SLCLOUDY; URINE BILIRUBIN NEGATIVE (<2.0 mg/dL); URINE COLOR YELLOW; URINE GLUCOSE (UA) NEGATIVE (NEGATIVE); URINE KETONE NEGATIVE (NEGATIVE); URINE LEUK ESTERASE NEGATIVE (NEGATIVE); URINE NITRITE NEGATIVE (NEGATIVE); URINE PROTEIN NEGATIVE (NEGATIVE)
[2018-05-23] MEDS: THIAMINE HCL 100 MG TABLET (FP) PO SCH (22:40)
[2018-05-23] MEDS: MIRTAZAPINE 15 MG TABLET (FP) PO SCH (22:40)
[2018-05-24] MEDS: ALBUTEROL SO4 2.5/IPRATROPIUM 0.5 INH SOL 3 ML VIAL.NEB. NEB PRN (05:12)
[2018-05-24] MEDS: chlordiazePOXIDE HCL 25 MG CAPSULE PO SCH ×2 (05:18→10:37)
[2018-05-24] MEDS: ALBUTEROL SO4 8 GM HFA INHALER IH PRN (06:42)
[2018-05-24] MEDS ORDERED: ALBUTEROL SO4 2.5/IPRATROPIUM 0.5 INH SOL 3 ML VIAL.NEB. NEB ONE (08:35)
[2018-05-24] MEDS ORDERED: predniSONE 20 MG TABLET (UD) PO ONE (10:00)
[2018-05-24] MEDS: GABAPENTIN 300 MG CAPSULE (FP) PO SCH ×2 (10:37→22:46)
[2018-05-24] MEDS: PRENATAL VITAMINS W/ FOLIC ACID TABLET (FP) PO SCH (10:37)
[2018-05-24] MEDS: risperiDONE 1 MG TABLET (FP) PO SCH ×2 (10:37→22:46)
[2018-05-24] MEDS: NICOTINE 21 MG/24 HOURS TOPICAL PATCH TD SCH (10:37)
[2018-05-24] MEDS: BUDESONIDE/FORMETEROL FUMARATE 160/4.5 mcg INHALER IH SCH ×2 (10:37→22:45)
[2018-05-24] MEDS: IBUPROFEN 400 MG TABLET (FP) PO PRN ×2 (10:39→17:02)
[2018-05-24] MEDS: NICOTINE POLACRILEX 2 MG GUM BUC PRN (14:57)
--- NOTE | 2018-05-24 15:00 | PN ---
S CIWA - CIWA Score Nausea/Vomitin Muscle Tremors: 4-Moderate,w/Arms Extend Anxiety: 4-Mod. Anxious/Guarded Agitation: 4-Moderately Restless Paroxysmal Sweats: 3 Orientation: 0-Oriented Tacttile Disturbances: 0-None Auditory Disturbances: 0-None Visual Disturbances: 0-None Headache: 0-None Present CIWA-Ar Total Score: 17 BHS Progress Note (SOAP) Subjective: Tremor, nausea, interrupted sleep Objective: 05/24/18 14:55 Last Vital Signs Temp Pulse Resp BP Pulse Ox 98.1 F 98 H 17 110/71 05/24/18 09:44 05/24/18 09:44 05/24/18 09:44 05/24/18 09:44 Laboratory Tests 05/23/18 05/23/18 05/23/18 06:00 06:00 06:00 WBC 5.5 RBC 4.48 Hgb 13.8 Hct 42.3 MCV 94.4 MCH 30.9 MCHC 32.7 RDW 13.7 Plt Count 214 D MPV 9.9 Sodium 138 Potassium 3.8 Chloride 98 Carbon Dioxide 25 Anion Gap 15 BUN 11 Creatinine 0.6 Creat Clearance w eGFR > 60 Random Glucose 155 H Calcium 9.9 Total Bilirubin 0.8 AST 30 ALT 29 Alkaline Phosphatase 90 Total Protein 6.8 Albumin 3.4 Urine Color Urine Appearance Urine pH Ur Specific [place] Urine Protein Urine Glucose (UA) Urine Ketones Urine Blood Urine Nitrite Urine Bilirubin Urine Urobilinogen Ur Leukocyte Esterase RPR Titer Nonreactive 05/23/18 17:30 WBC RBC Hgb Hct MCV MCH MCHC RDW Plt Count MPV Sodium Potassium Chloride Carbon Dioxide Anion Gap BUN Creatinine Creat Clearance w eGFR Random Glucose Calcium Total Bilirubin AST ALT Alkaline Phosphatase Total Protein Albumin Urine Color Yellow Urine Appearance Slcloudy Urine pH 5.0 D Ur Specific [place] 1.020 Urine Protein Negative Urine Glucose (UA) Negative Urine Ketones Negative Urine Blood Negative Urine Nitrite Negative Urine Bilirubin Negative Urine Urobilinogen 2.0 Ur Leukocyte Esterase Negative RPR Titer Labs reviewed: serum glucose 155mg/dl Assessment: 05/24/18 14:57 Withdrawal symptoms Plan: Continue detox Hyperglycemia: patient denies dm, encouraged PO water intake, repeat fasting glucose
[2018-05-24] MEDS: chlordiazePOXIDE 5 MG CAPSULE PO SCH ×2 (17:02→22:45)
--- NOTE | 2018-05-24 18:05 | PN ---
BHS Progress Note (SOAP) Subjective: Patient states twisted ankle while in shower. Denies falling. States pain in (R ) ankle sharp and a "10" when stands up. Patient was seen at [facility] 3 days prior to admission at [facility] for (R) ankle sprain. Objective: Alert and oriented. (R) outer malleolus w/ increased swelling and tenderness with ROM. FROM w/o crepitus. Plantar reflex wnl. Vital Signs 05/24/18 15:04 Temperature 98.5 F Pulse Rate 82 Respiratory 18 Rate Blood Pressure 115/73 Assessment: Sprain (R) ankle aggravated. Alcohol withdrawal. Plan: Ice to (R) ankle as prescribed. Elevate (R) foot/ankle. Bed rest x 24 hours Ibuprofen for pain and as an anti-inflammatory as prescribed. Protonix prophylaxis while on ibuprofen. Munir bandage to (R) foot/ankle. Splint to (R) ankle. Cane, for support. F/u in am and as needed. Continue detox protocol.
[2018-05-24] MEDS: IBUPROFEN 600 MG TABLET (FP) PO SCH ×2 (19:37→23:00)
[2018-05-24] MEDS: chlordiazePOXIDE HCL 25 MG CAPSULE PO PRN (19:45)
[2018-05-24] MEDS: THIAMINE HCL 100 MG TABLET (FP) PO SCH (22:45)
[2018-05-24] MEDS: PANTOPRAZOLE 20 MG TABLET (FP) PO SCH (22:46)
[2018-05-24] MEDS: MIRTAZAPINE 15 MG TABLET (FP) PO SCH (22:46)
[2018-05-24] MEDS: P-EPHED 60MG/TRIPROLIDI 2.5MG TABLET PO PRN (23:06)
[2018-05-25] MEDS: ALBUTEROL SO4 2.5/IPRATROPIUM 0.5 INH SOL 3 ML VIAL.NEB. NEB PRN (03:00)
[2018-05-25] MEDS: chlordiazePOXIDE 5 MG CAPSULE PO SCH ×2 (05:31→10:32)
[2018-05-25] MEDS: IBUPROFEN 600 MG TABLET (FP) PO SCH ×4 (05:31→23:29)
[2018-05-25] MEDS: NICOTINE POLACRILEX 2 MG GUM BUC PRN ×4 (05:59→17:47)
[2018-05-25] MEDS ORDERED: predniSONE 10 MG TABLET (UD) PO ONE (10:00)
[2018-05-25] MEDS: BUDESONIDE/FORMETEROL FUMARATE 160/4.5 mcg INHALER IH SCH ×2 (10:32→22:10)
[2018-05-25] MEDS: PANTOPRAZOLE 20 MG TABLET (FP) PO SCH ×2 (10:32→22:11)
[2018-05-25] MEDS: GABAPENTIN 300 MG CAPSULE (FP) PO SCH ×2 (10:32→22:11)
[2018-05-25] MEDS: NICOTINE 21 MG/24 HOURS TOPICAL PATCH TD SCH (10:32)
[2018-05-25] MEDS: risperiDONE 1 MG TABLET (FP) PO SCH ×2 (10:32→22:11)
[2018-05-25] MEDS: PRENATAL VITAMINS W/ FOLIC ACID TABLET (FP) PO SCH (10:32)
[2018-05-25] MEDS: P-EPHED 60MG/TRIPROLIDI 2.5MG TABLET PO PRN (10:53)
--- NOTE | 2018-05-25 13:59 | PN ---
[facility] Progress Note Note: PATIENT CONTINUES WITH DETOX REGIMEN. STATES "I FEEL WELL." DENIES C/O SHAKES, HEADACHE, N/V/D. Vital Signs Temperature 98.2 F 05/25/18 10:45 Pulse Rate 108 H 05/25/18 10:45 Respiratory Rate 18 05/25/18 10:45 Blood Pressure 110/75 05/25/18 10:45 O2 Sat by Pulse Oximetry (%) Laboratory Tests 05/23/18 05/23/18 05/23/18 06:00 06:00 06:00 WBC 5.5 RBC 4.48 Hgb 13.8 Hct 42.3 MCV 94.4 MCH 30.9 MCHC 32.7 RDW 13.7 Plt Count 214 D MPV 9.9 Sodium 138 Potassium 3.8 Chloride 98 Carbon Dioxide 25 Anion Gap 15 BUN 11 Creatinine 0.6 Creat Clearance w eGFR > 60 Random Glucose 155 H Fasting Glucose Hemoglobin A1c % Calcium 9.9 Total Bilirubin 0.8 AST 30 ALT 29 Alkaline Phosphatase 90 Total Protein 6.8 Albumin 3.4 Urine Color Urine Appearance Urine pH Ur Specific [place] Urine Protein Urine Glucose (UA) Urine Ketones Urine Blood Urine Nitrite Urine Bilirubin Urine Urobilinogen Ur Leukocyte Esterase RPR Titer Nonreactive 05/23/18 05/25/18 05/25/18 17:30 08:00 08:00 WBC RBC Hgb Hct MCV MCH MCHC RDW Plt Count MPV Sodium Potassium Chloride Carbon Dioxide Anion Gap BUN Creatinine Creat Clearance w eGFR Random Glucose Fasting Glucose 117 H Hemoglobin A1c % 5.9 Calcium Total Bilirubin AST ALT Alkaline Phosphatase Total Protein Albumin Urine Color Yellow Urine Appearance Slcloudy Urine pH 5.0 D Ur Specific [place] 1.020 Urine Protein Negative Urine Glucose (UA) Negative Urine Ketones Negative Urine Blood Negative Urine Nitrite Negative Urine Bilirubin Negative Urine Urobilinogen 2.0 Ur Leukocyte Esterase Negative RPR Titer SKIN WARM AND DRY CAR S1S2 RESP CTA BL EXT FULL ROM, NO TREMORS ALERT AND ORIENTED X 3 AMB AD HONEY A/P: WITHDRAWAL SX CONTINUE DETOX ENCOURAGE ORAL FLUIDS CONTINUE TO MONITOR CLINICALLY
[2018-05-25] MEDS: chlordiazePOXIDE HCL 10 MG CAPSULE PO SCH ×2 (17:45→22:11)
[2018-05-25] MEDS: THIAMINE HCL 100 MG TABLET (FP) PO SCH (22:10)
[2018-05-25] MEDS: MIRTAZAPINE 15 MG TABLET (FP) PO SCH (22:11)
[2018-05-26] MEDS: ALBUTEROL SO4 2.5/IPRATROPIUM 0.5 INH SOL 3 ML VIAL.NEB. NEB PRN (04:35)
[2018-05-26] MEDS: chlordiazePOXIDE HCL 10 MG CAPSULE PO SCH (05:31)
[2018-05-26] MEDS: IBUPROFEN 600 MG TABLET (FP) PO SCH (06:04)
[2018-05-26 09:24] VITALS: BP 114/76; PULSE 93; TEMP 96.9
[2018-05-26] MEDS ORDERED: predniSONE 5 MG TABLET (UD) PO ONE (10:00)
--- NOTE | 2018-05-26 12:14 | DS ---
[facility] Detox Discharge Summary Admission Date: 05/22/18 Discharge Date: 05/26/18 - History Present History: Alcohol Dependence, Cannabis Dependence Pertinent Past History: Anemia COPD - Physical Exam Results Vital Signs: Vital Signs Temperature 96.9 F L 05/26/18 09:23 Pulse Rate 93 H 05/26/18 09:23 Respiratory Rate 20 05/26/18 09:23 Blood Pressure 114/76 05/26/18 09:23 O2 Sat by Pulse Oximetry (%) Pertinent Admission Physical Exam Findings: Withdrawal symptoms Laboratory Tests 05/23/18 05/23/18 05/23/18 06:00 06:00 06:00 WBC 5.5 RBC 4.48 Hgb 13.8 Hct 42.3 MCV 94.4 MCH 30.9 MCHC 32.7 RDW 13.7 Plt Count 214 D MPV 9.9 Sodium 138 Potassium 3.8 Chloride 98 Carbon Dioxide 25 Anion Gap 15 BUN 11 Creatinine 0.6 Creat Clearance w eGFR > 60 Random Glucose 155 H Fasting Glucose Hemoglobin A1c % Calcium 9.9 Total Bilirubin 0.8 AST 30 ALT 29 Alkaline Phosphatase 90 Total Protein 6.8 Albumin 3.4 Urine Color Urine Appearance Urine pH Ur Specific [place] Urine Protein Urine Glucose (UA) Urine Ketones Urine Blood Urine Nitrite Urine Bilirubin Urine Urobilinogen Ur Leukocyte Esterase RPR Titer Nonreactive 05/23/18 05/25/18 05/25/18 17:30 08:00 08:00 WBC RBC Hgb Hct MCV MCH MCHC RDW Plt Count MPV Sodium Potassium Chloride Carbon Dioxide Anion Gap BUN Creatinine Creat Clearance w eGFR Random Glucose Fasting Glucose 117 H Hemoglobin A1c % 5.9 Calcium Total Bilirubin AST ALT Alkaline Phosphatase Total Protein Albumin Urine Color Yellow Urine Appearance Slcloudy Urine pH 5.0 D Ur Specific [place] 1.020 Urine Protein Negative Urine Glucose (UA) Negative Urine Ketones Negative Urine Blood Negative Urine Nitrite Negative Urine Bilirubin Negative Urine Urobilinogen 2.0 Ur Leukocyte Esterase Negative RPR Titer Labs reviewed: prediabetes - Treatment Hospital Course: Detox Protocol Followed, Detoxed Safely, Responded well, Discharged Condition Good - Medication Discharge Medications: Ambulatory Orders Mirtazapine [Remeron -] 15 mg PO HS #30 tablet 04/22/18 Risperidone [Risperdal -] 1 mg PO BID #60 tablet 04/22/18 Gabapentin 300 mg PO BID 05/23/18 Albuterol Sulfate Inhaler - [Ventolin HFA Inhaler -] 2 inh PO Q6H PRN #1 inhaler 05/25/18 Budesonide/Formeterol Fumarate [SYMBICORT 160/4.5mcg -] 2 inh PO BID #1 inhaler 05/25/18 - Diagnosis (1) Hyperglycemia Status: Acute (2) Anemia Status: Chronic (3) Acute bronchitis Status: Acute (4) Alcohol dependence with uncomplicated withdrawal Status: Acute (5) Depression Status: Chronic (6) Nicotine dependence Status: Chronic Qualifiers: Nicotine product type: cigarettes Substance use status: in withdrawal Qualified Code(s): F17.213 - Nicotine dependence, cigarettes, with withdrawal (7) Bipolar disorder Status: Chronic Qualifiers: Active/Remission status: remission status unspecified Qualified Code(s): F31.9 - Bipolar disorder, unspecified (8) COPD (chronic obstructive pulmonary disease) Status: Chronic Qualifiers: COPD type: unspecified COPD Qualified Code(s): J44.9 - Chronic obstructive pulmonary disease, unspecified (9) Cannabis abuse Status: Chronic (10) Prediabetes Status: Acute - AMA Did Patient Leave Against Medical Advice: No (F/U with your PCP within 1-2 weeks )
== END 2018-05-26 09:30 | disposition home or self-care (01) | DRG 775 ==
LOC: YASAS 09:31 → Y3N 12:28
PROC: HZ2ZZZZ Detoxification Services for Substance Abuse Treatment (ICD-10-PCS; principal; 2018-05-22)
DX: F10.230 Alcohol dependence with withdrawal, uncomplicated (principal); F12.10 Cannabis abuse, uncomplicated; F17.213 Nicotine dependence, cigarettes, with withdrawal; F31.9 Bipolar disorder, unspecified; F32.9 Major depressive disorder, single episode, unspecified; D64.9 Anemia, unspecified; J44.9 Chronic obstructive pulmonary disease, unspecified; J20.9 Acute bronchitis, unspecified; R73.03 Prediabetes
CPT/HCPCS: 36415; 71045-TC-FY; 80053; 81003; 82947; 83036; 85027; 86593; 93005; 93010; 94640; J2794

== ENCOUNTER 2018-07-23 09:17 | Inpatient (IN) | payer OTHER ==
[2018-07-23 09:31] VITALS: BMI 25.1
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
[2018-07-23] MEDS ORDERED: P-EPHED 60MG/TRIPROLIDI 2.5MG TABLET PO PRN (10:25)
[2018-07-23] MEDS ORDERED: MAG HYDROX/AL HYDROX/SIMETH 30 ML UNIT-DOSE CUP PO PRN (10:25)
[2018-07-23] MEDS ORDERED: MAGNESIUM CITRATE 300 ML BOTTLE PO PRN (10:25)
[2018-07-23] MEDS ORDERED: MAGNESIUM HYDROX 2400MG/30ML ORAL SUSPENSION 30 ML CUP PO PRN (10:25)
[2018-07-23] MEDS ORDERED: NICOTINE POLACRILEX 2 MG GUM BUC PRN (10:25)
[2018-07-23] MEDS ORDERED: guaiFENesin/D-METHORPHAN HB 10 ML UNIT-DOSE CUPS PO PRN (10:25)
[2018-07-23] MEDS ORDERED: ACETAMINOPHEN 325 MG TABLET (FP) PO PRN (10:25)
[2018-07-23] MEDS ORDERED: MENTHOL/PHENOL 1 EACH UD MM PRN (10:25)
[2018-07-23] MEDS ORDERED: ALBUTEROL SO4 8 GM HFA INHALER IH PRN (10:27)
[2018-07-23] MEDS: chlordiazePOXIDE HCL 25 MG CAPSULE PO PRN ×2 (11:32→15:40)
[2018-07-23] MEDS: IBUPROFEN 400 MG TABLET (FP) PO PRN (14:18)
[2018-07-23] MEDS: chlordiazePOXIDE HCL 25 MG CAPSULE PO SCH ×2 (17:18→22:26)
[2018-07-23] MEDS: THIAMINE HCL 100 MG TABLET (FP) PO SCH (22:26)
[2018-07-23] MEDS: MELATONIN 5 MG TABLETS PO PRN (22:27)
[2018-07-23] MEDS: BUDESONIDE/FORMETEROL FUMARATE 160/4.5 mcg INHALER IH SCH (23:14)
[2018-07-24] MEDS: chlordiazePOXIDE HCL 25 MG CAPSULE PO SCH ×4 (05:56→22:33)
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
[2018-07-24 09:59] LABS: HEMATOCRIT 43.9 % (35.4-49); HEMOGLOBIN 14.3 GM/dL (11.7-16.9); MCH 31.1 pg (25.7-33.7); MCHC 32.6 g/dl (32.0-35.9); MEAN CELL VOLUME 95.3 fl (80-96); MEAN PLT VOLUME 9.6 fl (7.5-11.1); PLATELET COUNT 145 K/MM3 (134-434); WHITE BLOOD COUNT 6.1 K/mm3 (4.0-10.0)
[2018-07-24] MEDS ORDERED: PRENATAL VITAMINS W/ FOLIC ACID TABLET (FP) PO SCH (10:00)
[2018-07-24 11:17] LABS: ALBUMIN 3.8 g/dl (3.4-5.0); ALK PHOS 108 U/L (45-117); ANION GAP 15 MMOL/L (8-16); BILIRUBIN,TOTAL 0.7 mg/dL (0.2-1); BLOOD UREA NITROGEN 6 mg/dL (7-18); CALCIUM 8.6 mg/dL (8.5-10.1); CHLORIDE 96 mmol/L (98-107); CO2 24 mmol/L (21-32); CREATININE 0.5 mg/dL (0.55-1.3); GLUCOSE,RANDOM 86 mg/dL (74-106); POTASSIUM 3.4 mmol/L (3.5-5.1); SGOT/AST 41 U/L (15-37); SGPT/ALT 46 U/L (13-61); SODIUM 134 mmol/L (136-145)
[2018-07-24] MEDS: BUDESONIDE/FORMETEROL FUMARATE 160/4.5 mcg INHALER IH SCH ×2 (13:02→22:32)
--- NOTE | 2018-07-24 13:34 | CONSULT ---
[facility] Psychiatric Consult - Data Date of interview: 07/24/18 Admission source: [facility] Identifying data: Not found on the unit. Patient has been transferred to [facility].
--- NOTE | 2018-07-24 15:30 | PN ---
S Progress Note Note: Pt evaluated in ED CXR - no acute infiltrate , or effusion, pt afebrile , wbc wnl - PT diagnosed with bronchitis . CBCD WBC 6.1 K/mm3 (4.0-10.0) 07/24/18 05:45 RBC 4.60 M/mm3 (4.00-5.60) 07/24/18 05:45 Hgb 14.3 GM/dL (11.7-16.9) 07/24/18 05:45 Hct 43.9 % (35.4-49) 07/24/18 05:45 MCV 95.3 fl (80-96) 07/24/18 05:45 MCHC 32.6 g/dl (32.0-35.9) 07/24/18 05:45 RDW 15.0 % (11.9-15.9) 07/24/18 05:45 Plt Count 145 K/MM3 (134-434) D 07/24/18 05:45 MPV 9.6 fl (7.5-11.1) 07/24/18 05:45 CMP Sodium 134 mmol/L (136-145) L 07/24/18 05:45 Potassium 3.4 mmol/L (3.5-5.1) L 07/24/18 05:45 Chloride 96 mmol/L (98-107) L 07/24/18 05:45 Carbon Dioxide 24 mmol/L (21-32) 07/24/18 05:45 Anion Gap 15 MMOL/L (8-16) 07/24/18 05:45 BUN 6 mg/dL (7-18) L 07/24/18 05:45 Creatinine 0.5 mg/dL (0.55-1.3) L 07/24/18 05:45 Creat Clearance w eGFR > 60 (>60) 07/24/18 05:45 Calcium 8.6 mg/dL (8.5-10.1) 07/24/18 05:45 Total Bilirubin 0.7 mg/dL (0.2-1) 07/24/18 05:45 AST 41 U/L (15-37) H 07/24/18 05:45 ALT 46 U/L (13-61) 07/24/18 05:45 Alkaline Phosphatase 108 U/L (45-117) 07/24/18 05:45 Total Protein 7.0 g/dl (6.4-8.2) 07/24/18 05:45 Albumin 3.8 g/dl (3.4-5.0) 07/24/18 05:45 Started on prednisone 60mg , levaquin 500mg q daily and albuterol inhalation tx. q 4 h in ED PLan cont levaquin 5000mg /d x 6 days, prednisone 60mg on 07/25/18 x 1 , then predisone 40mg x2d, 30mg x2d, 20mg x2d, 10mg x2d 5mfg x2d then 2.5mg x2days and d/c. duoneb 1 vial q 4h prn if sob worsens return to ED
[2018-07-24] MEDS ORDERED: ALBUTEROL SO4 2.5/IPRATROPIUM 0.5 INH SOL 3 ML VIAL.NEB. NEB PRN (15:40)
[2018-07-24] MEDS: chlordiazePOXIDE HCL 25 MG CAPSULE PO PRN (15:44)
--- NOTE | 2018-07-24 18:09 | PN ---
[facility] Progress Note Note: Patient states wants to sign out AMA. States health issues are depressing him and increases his restlessness and anxiety. States has no family to support him post discharge. Denies thoughts of harming self. Tearful when discusses recent cancer diagnosis. Discussed his ER visit, the need for medication, and the fact that the staff here would support him in his recovery. Lungs w/(+) wheeze. Tremors noted at rest. Encouraged PRN librium. Nebulizer tx. Psych eval.
[2018-07-24] MEDS: ALBUTEROL SO4 2.5/IPRATROPIUM 0.5 INH SOL 3 ML VIAL.NEB. NEB SCH (18:16)
[2018-07-24] MEDS: THIAMINE HCL 100 MG TABLET (FP) PO SCH (22:33)
[2018-07-24] MEDS: MELATONIN 5 MG TABLETS PO PRN (22:33)
[2018-07-25] MEDS: IBUPROFEN 400 MG TABLET (FP) PO PRN (03:49)
[2018-07-25] MEDS: chlordiazePOXIDE HCL 25 MG CAPSULE PO SCH (05:42)
[2018-07-25] MEDS: ALBUTEROL SO4 2.5/IPRATROPIUM 0.5 INH SOL 3 ML VIAL.NEB. NEB SCH (07:57)
[2018-07-25 09:16] VITALS: BP 108/63; PULSE 116; TEMP 96.4
--- NOTE | 2018-07-25 09:17 | PN ---
[facility] Progress Note Note: pt states he wants to leave he want to see his pulmonary doctor at [facility]. pt states he rather get assessed by his doctor and follow up with his care with him. pt was advised to stay to complete detox and follow up with our care after his ER visit; but pt prefer to have his ABX sent to his pharmacy and f/u with his criminal intelligence analyst. pt signed out AMA.
--- NOTE | 2018-07-25 09:19 | DS ---
[facility] Detox Discharge Summary Admission Date: 07/23/18 Discharge Date: 07/25/18 - History Present History: Alcohol Dependence, Cannabis Dependence - Physical Exam Results Vital Signs: Vital Signs Temperature 96.4 F L 07/25/18 09:16 Pulse Rate 116 H 07/25/18 09:16 Respiratory Rate 20 07/25/18 09:16 Blood Pressure 108/63 07/25/18 09:16 O2 Sat by Pulse Oximetry (%) - Treatment Hospital Course: Discharged Condition Good - Medication Discharge Medications: Ambulatory Orders Mirtazapine [Remeron -] 15 mg PO HS #30 tablet 04/22/18 Risperidone [Risperdal -] 1 mg PO BID #60 tablet 04/22/18 Gabapentin 300 mg PO BID 05/23/18 Albuterol Sulfate Inhaler - [Ventolin HFA Inhaler -] 2 inh PO Q6H PRN #1 inhaler 05/25/18 Budesonide/Formeterol Fumarate [SYMBICORT 160/4.5mcg -] 2 inh PO BID #1 inhaler 05/25/18 - Diagnosis (1) SOB (shortness of breath) Current Visit: Yes Status: Acute (2) Acute bronchitis Current Visit: Yes Status: Acute Qualifiers: Bronchitis organism: unspecified organism Qualified Code(s): J20.9 - Acute bronchitis, unspecified (3) Acute exacerbation of chronic bronchitis Current Visit: No Status: Acute (4) Cancer of right lung Current Visit: No Status: Acute Qualifiers: Lung location: unspecified part of lung Qualified Code(s): C34.91 - Malignant neoplasm of unspecified part of right bronchus or lung (5) Dehydration Current Visit: No Status: Acute (6) Hyperglycemia Current Visit: No Status: Acute (7) Insomnia Current Visit: No Status: Acute Qualifiers: Insomnia type: alcohol-induced Qualified Code(s): F10.982 - Alcohol use, unspecified with alcohol-induced sleep disorder (8) Prediabetes Current Visit: No Status: Acute (9) Alcohol dependence with uncomplicated withdrawal Current Visit: Yes Status: Chronic (10) Anemia Current Visit: No Status: Chronic (11) Bipolar disorder Current Visit: No Status: Chronic Qualifiers: Active/Remission status: remission status unspecified Qualified Code(s): F31.9 - Bipolar disorder, unspecified (12) COPD (chronic obstructive pulmonary disease) Current Visit: No Status: Chronic Qualifiers: COPD type: unspecified COPD Qualified Code(s): J44.9 - Chronic obstructive pulmonary disease, unspecified (13) Cannabis abuse Current Visit: No Status: Chronic (14) Depression Current Visit: No Status: Chronic (15) HTN (hypertension) Current Visit: No Status: Chronic Qualifiers: Hypertension type: essential hypertension Qualified Code(s): I10 - Essential (primary) hypertension (16) Nicotine dependence Current Visit: Yes Status: Chronic Qualifiers: Nicotine product type: cigarettes Substance use status: uncomplicated Qualified Code(s): F17.210 - Nicotine dependence, cigarettes, uncomplicated (17) Murmur, cardiac Current Visit: No Status: Suspected - AMA Did Patient Leave Against Medical Advice: Yes (pt states he is going to his pulmonary )
[2018-07-25] MEDS ORDERED: predniSONE 20 MG TABLET (UD) PO ONE (10:00)
[2018-07-25] MEDS ORDERED: chlordiazePOXIDE 5 MG CAPSULE PO SCH (17:00)
[2018-07-26] MEDS ORDERED: chlordiazePOXIDE HCL 10 MG CAPSULE PO SCH (17:00)
[2018-07-26] MEDS ORDERED: predniSONE 20 MG TABLET (UD) PO SCH (22:00)
[2018-07-28] MEDS ORDERED: predniSONE 20 MG TABLET (UD) PO SCH (10:00)
[2018-07-30] MEDS ORDERED: predniSONE 20 MG TABLET (UD) PO SCH (10:00)
[2018-08-01] MEDS ORDERED: predniSONE 20 MG TABLET (UD) PO SCH (10:00)
[2018-08-03] MEDS ORDERED: predniSONE 5 MG TABLET (UD) PO SCH (10:00)
[2018-08-04] MEDS ORDERED: predniSONE 2.5 MG TABLET PO SCH (10:00)
[2018-08-05] MEDS ORDERED: predniSONE 5 MG TABLET (UD) PO SCH (10:00)
== END 2018-07-25 09:25 | disposition left against medical advice (07) | DRG 770 ==
LOC: YASAS 09:17 → Y6N 10:55
PROC: HZ2ZZZZ Detoxification Services for Substance Abuse Treatment (ICD-10-PCS; principal; 2018-07-23)
DX: F10.230 Alcohol dependence with withdrawal, uncomplicated (principal); F10.220 Alcohol dependence with intoxication, uncomplicated; F10.282 Alcohol dependence with alcohol-induced sleep disorder; F14.10 Cocaine abuse, uncomplicated; F17.210 Nicotine dependence, cigarettes, uncomplicated; F31.9 Bipolar disorder, unspecified; I10 Essential (primary) hypertension; E86.0 Dehydration; J44.1 Chronic obstructive pulmonary disease with (acute) exacerbation; R06.02 Shortness of breath; J20.9 Acute bronchitis, unspecified; E73.9 Lactose intolerance, unspecified; D64.9 Anemia, unspecified; D57.1 Sickle-cell disease without crisis; R01.1 Cardiac murmur, unspecified; R00.0 Tachycardia, unspecified
CPT/HCPCS: 36415; 80053; 85027; 86593; 94640

== ENCOUNTER 2018-07-24 09:37 | Emergency (ER) | payer OTHER ==
[2018-07-24 09:54] VITALS: BMI 24.6
[2018-07-24] MEDS ORDERED: ALBUTEROL SO4 2.5/IPRATROPIUM 0.5 INH SOL 3 ML VIAL.NEB. NEB ONE ×5 (09:55→13:52)
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
[2018-07-24] MEDS ORDERED: methylPREDNISolone NA SUCC 125 MG/2 ML VIAL ONE (10:45)
[2018-07-24] MEDS ORDERED: methylPREDNISolone NA SUCC 125 MG/2 ML VIAL IVPB ONE ×2 (10:48→13:44)
[2018-07-24 11:04] LABS: VENOUS PC02 46.1 mmHg (38-52); VENOUS PH 7.44 (7.32-7.42); VENOUS PO2 47.9 mmHg (28-48)
[2018-07-24 11:31] LABS: INR 0.93 (0.83-1.09)
[2018-07-24 11:33] LABS: ACTIVATED PTT 30.2 SECONDS (25.2-36.5)
[2018-07-24 11:53] LABS: ALBUMIN 3.2 g/dl (3.4-5.0); ALK PHOS 93 U/L (45-117); ANION GAP 7 MMOL/L (8-16); BILIRUBIN,TOTAL 0.9 mg/dL (0.2-1); BLOOD UREA NITROGEN 8 mg/dL (7-18); CALCIUM 8.9 mg/dL (8.5-10.1); CHLORIDE 98 mmol/L (98-107); CO2 31 mmol/L (21-32); CREATININE 0.7 mg/dL (0.55-1.3); GLUCOSE,RANDOM 121 mg/dL (74-106); POTASSIUM 4.2 mmol/L (3.5-5.1); SGOT/AST 36 U/L (15-37); SGPT/ALT 36 U/L (13-61); SODIUM 136 mmol/L (136-145); TOT PROT 6.4 g/dl (6.4-8.2)
[2018-07-24] MEDS ORDERED: chlordiazePOXIDE HCL 25 MG CAPSULE PO ONE (11:57)
[2018-07-24] MEDS ORDERED: chlordiazePOXIDE HCL 25 MG CAPSULE ONE (12:00)
[2018-07-24 12:47] LABS: WHITE BLOOD COUNT 5.4 K/mm3 (4.0-10.0)
[2018-07-24 12:48] LABS: BASO % 0.7 % (0-2.0); EOS % 0.2 % (0-4.5); HEMATOCRIT 40.2 % (35.4-49); HEMOGLOBIN 14.2 GM/dL (11.7-16.9); LYMPH % 18.7 % (8-40); MCHC 35.3 g/dl (32.0-35.9); MEAN CELL VOLUME 93.4 fl (80-96); MEAN PLT VOLUME 9.7 fl (7.5-11.1); MONO % 20.7 % (3.8-10.2); NEUT % 59.7 % (42.8-82.8); PLATELET COUNT 156 K/MM3 (134-434); RDW 14.9 % (11.9-15.9)
--- NOTE | 2018-07-24 13:35 | EKG ---
Test Reason : Blood Pressure : / mmHG Vent. Rate : 098 BPM Atrial Rate : 098 BPM P-R Int : 148 ms QRS Dur : 098 ms QT Int : 352 ms P-R-T Axes : 041 059 065 degrees QTc Int : 449 ms POOR DATA QUALITY, INTERPRETATION MAY BE ADVERSELY AFFECTED NORMAL SINUS RHYTHM LOW VOLTAGE QRS BORDERLINE ECG WHEN COMPARED WITH ECG OF 23-MAY-2018 12:59, NO SIGNIFICANT CHANGE WAS FOUND Confirmed by SANDY EAST MD ([id number]) on 07/24/2018 1:35:14 PM Referred By: Confirmed By:SANDY EAST MD
[2018-07-24 13:40] VITALS: TEMP 98.7
[2018-07-24] MEDS ORDERED: methylPREDNISolone NA SUCC 40 MG/1 ML VIAL ONE (13:52)
[2018-07-24 15:08] VITALS: BP 119/79; PULSE 96
[2018-07-24 15:19] LABS: ACANTHOCYTES 0; ANISOCYTOSIS 0; HELMET CELLS 0; HOWELL-JOLLY BODIES 0; MACROCYTOSIS 0; OVALOCYTE 0; PLATELET ESTIMATE DECREASED; ROULEAU 0; SICKELED CELLS 0; TARGET CELLS 0; TEAR DROP CELLS 0; TOXIC GRANULATION 0
== END 2018-07-24 15:00 | disposition other institution (70) ==
LOC: JER 09:37
PROC: 3E0333Z Introduction of Anti-inflammatory into Peripheral Vein, Percutaneous Approach (ICD-10-PCS; principal; 2018-07-24)
PROC: 3E0F7GC Introduction of Other Therapeutic Substance into Respiratory Tract, Via Natural or Artificial Opening (ICD-10-PCS; 2018-07-24)
DX: J44.1 Chronic obstructive pulmonary disease with (acute) exacerbation (principal); D57.1 Sickle-cell disease without crisis; F17.210 Nicotine dependence, cigarettes, uncomplicated
CPT/HCPCS: 36415; 71046-TC-FY; 80053; 82803; 83605; 84484; 85025; 85610; 85730; 87040; 87804; 93005; 93010; 99285-25

== ENCOUNTER 2018-09-18 09:37 | Inpatient (IN) | payer OTHER ==
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
[2018-09-18 10:04] VITALS: BMI 24.6
[2018-09-18] MEDS ORDERED: LOPERAMIDE HCL 2 MG CAPSULE PO PRN (10:22)
[2018-09-18] MEDS ORDERED: hydrOXYzine PAMOATE 25 MG CAPSULE (FP) PO PRN (10:22)
[2018-09-18] MEDS ORDERED: NICOTINE POLACRILEX 2 MG GUM BUC PRN (10:22)
[2018-09-18] MEDS ORDERED: P-EPHED 60MG/TRIPROLIDI 2.5MG TABLET PO PRN (10:22)
[2018-09-18] MEDS ORDERED: MAG HYDROX/AL HYDROX/SIMETH 30 ML UNIT-DOSE CUP PO PRN (10:22)
[2018-09-18] MEDS ORDERED: ACETAMINOPHEN 325 MG TABLET (FP) PO PRN (10:22)
[2018-09-18] MEDS ORDERED: MENTHOL/PHENOL 1 EACH UD MM PRN (10:22)
[2018-09-18] MEDS ORDERED: MAGNESIUM HYDROX 2400MG/30ML ORAL SUSPENSION 30 ML CUP PO PRN (10:22)
[2018-09-18] MEDS ORDERED: guaiFENesin/D-METHORPHAN HB 10 ML UNIT-DOSE CUPS PO PRN (10:22)
[2018-09-18] MEDS ORDERED: MAGNESIUM CITRATE 300 ML BOTTLE PO PRN (10:22)
[2018-09-18] MEDS ORDERED: IBUPROFEN 400 MG TABLET (FP) PO PRN (10:22)
[2018-09-18] MEDS: NICOTINE 21 MG/24 HOURS TOPICAL PATCH TD SCH (12:54)
[2018-09-18] MEDS: chlordiazePOXIDE HCL 25 MG CAPSULE PO PRN (12:55)
[2018-09-18] MEDS: ALBUTEROL SO4 8 GM HFA INHALER IH PRN ×2 (12:59→16:30)
[2018-09-18 15:47] LABS: URINE APPEARANCE CLEAR; URINE BILIRUBIN NEGATIVE (<2.0 mg/dL); URINE COLOR LTYELLOW; URINE GLUCOSE (UA) NEGATIVE (NEGATIVE); URINE KETONE NEGATIVE (NEGATIVE); URINE LEUK ESTERASE NEGATIVE (NEGATIVE); URINE NITRITE NEGATIVE (NEGATIVE); URINE PROTEIN NEGATIVE (NEGATIVE); URINE UROBILINOGEN NEGATIVE mg/dL (0.2-1.0)
--- NOTE | 2018-09-18 16:58 | PN ---
[facility] Progress Note Note: Patient currently admitted for alcohol detox c/o of SOB. Patient reports c/o SOB and dizziness. Patient with hx of COPD, reports when this occurs he calls EMS goes to ED and is tx with oxygen. BP 129/80 P105 RR18 T99.4 PO 91% Patient AO x3, anxious +mild wheezing + tachycardia Pulse present skin intact, no cyanosis present full ROM, ambulatory Patient was given NEB tx with no improvement, patient given o2 2L via NC, continue report sob. Patient sent to [facility] via [facility] for further evaluation. Attempted to endorsed to provider, but unavailable, report givent to Yoselin Uriostegui RN at [facility].
[2018-09-18] MEDS ORDERED: AZITHROMYCIN 250 MG TABLET PO ONE (17:00)
[2018-09-18] MEDS: ALBUTEROL SO4 0.083% IH SOL 2.5 MG/3 ML VIAL.NEB. NEB PRN (17:10)
[2018-09-18] MEDS: chlordiazePOXIDE HCL 25 MG CAPSULE PO SCH ×2 (17:10→23:21)
[2018-09-18] MEDS ORDERED: predniSONE 20 MG TABLET (UD) PO ONE (17:30)
[2018-09-18] MEDS ORDERED: THIAMINE HCL 100 MG TABLET (FP) PO SCH (22:00)
[2018-09-18] MEDS ORDERED: MELATONIN 5 MG TABLETS PO PRN (22:00)
[2018-09-18] MEDS: BUDESONIDE/FORMETEROL FUMARATE 160/4.5 mcg INHALER IH SCH (23:21)
[2018-09-19] MEDS: chlordiazePOXIDE HCL 25 MG CAPSULE PO SCH (04:29)
[2018-09-19] MEDS ORDERED: predniSONE 20 MG TABLET (UD) PO ONE (06:00)
[2018-09-19] MEDS: ALBUTEROL SO4 0.083% IH SOL 2.5 MG/3 ML VIAL.NEB. NEB PRN (07:48)
[2018-09-19] MEDS: ALBUTEROL SO4 8 GM HFA INHALER IH PRN (09:28)
[2018-09-19] MEDS: BUDESONIDE/FORMETEROL FUMARATE 160/4.5 mcg INHALER IH SCH (09:28)
[2018-09-19] MEDS: chlordiazePOXIDE HCL 25 MG CAPSULE PO PRN (09:28)
[2018-09-19] MEDS: NICOTINE 21 MG/24 HOURS TOPICAL PATCH TD SCH (09:30)
[2018-09-19 09:41] VITALS: BP 137/93; PULSE 91; TEMP 96.1
[2018-09-19] MEDS ORDERED: PRENATAL VITAMINS W/ FOLIC ACID TABLET (FP) PO SCH (10:00)
[2018-09-19] MEDS ORDERED: AZITHROMYCIN 250 MG TABLET PO SCH (10:00)
--- NOTE | 2018-09-19 10:06 | DS ---
[facility] Detox Discharge Summary Admission Date: 09/18/18 Discharge Date: 09/19/18 - History Present History: Alcohol Dependence Additional Comments: 58 years old male admitted on 09/18/18 for alcohol withdrawal stabilization patient returned from ER treated with "oxygen" patient preferred return to his primary care [facility] for his copd only my doctor knows what to do Pertinent Past History: patient preferred to be treated by his pulmonary physician patient reported that he went to the ER yesterday "nothing change" patient verbalized that pulmonary issue is more important than the alcohol detox 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 to make he breathe better - Physical Exam Results Vital Signs: Vital Signs Temperature 96.1 F L 09/19/18 09:40 Pulse Rate 91 H 09/19/18 09:40 Respiratory Rate 20 09/19/18 09:40 Blood Pressure 137/93 09/19/18 09:40 O2 Sat by Pulse Oximetry (%) Pertinent Admission Physical Exam Findings: alcohol withdrawal sx Laboratory Last Values WBC 5.3 K/mm3 (4.0-10.0) 09/19/18 06:00 RBC 4.74 M/mm3 (4.00-5.60) 09/19/18 06:00 Hgb 15.5 GM/dL (11.7-16.9) 09/19/18 06:00 Hct 45.7 % (35.4-49) 09/19/18 06:00 MCV 96.4 fl (80-96) H 09/19/18 06:00 MCH 32.6 pg (25.7-33.7) 09/19/18 06:00 MCHC 33.8 g/dl (32.0-35.9) 09/19/18 06:00 RDW 15.5 % (11.9-15.9) 09/19/18 06:00 Plt Count 201 K/MM3 (134-434) 09/19/18 06:00 MPV 10.0 fl (7.5-11.1) 09/19/18 06:00 Sodium 137 mmol/L (136-145) 09/19/18 06:00 Potassium 4.2 mmol/L (3.5-5.1) 09/19/18 06:00 Chloride 99 mmol/L (98-107) 09/19/18 06:00 Carbon Dioxide 30 mmol/L (21-32) 09/19/18 06:00 Anion Gap 8 MMOL/L (8-16) 09/19/18 06:00 BUN 7 mg/dL (7-18) 09/19/18 06:00 Creatinine 0.7 mg/dL (0.55-1.3) 09/19/18 06:00 Creat Clearance w eGFR > 60 (>60) 09/19/18 06:00 Random Glucose 94 mg/dL (74-106) 09/19/18 06:00 Calcium 8.8 mg/dL (8.5-10.1) 09/19/18 06:00 Total Bilirubin 0.6 mg/dL (0.2-1) 09/19/18 06:00 AST 139 U/L (15-37) H 09/19/18 06:00 ALT 197 U/L (13-61) H 09/19/18 06:00 Alkaline Phosphatase 97 U/L (45-117) 09/19/18 06:00 Total Protein 7.2 g/dl (6.4-8.2) 09/19/18 06:00 Albumin 4.1 g/dl (3.4-5.0) 09/19/18 06:00 Urine Color Ltyellow 09/18/18 11:40 Urine Appearance Clear 09/18/18 11:40 Urine pH 6.0 (5.0-8.0) 09/18/18 11:40 Ur Specific [place] 1.008 (1.010-1.035) L 09/18/18 11:40 Urine Protein Negative (NEGATIVE) 09/18/18 11:40 Urine Glucose (UA) Negative (NEGATIVE) 09/18/18 11:40 Urine Ketones Negative (NEGATIVE) 09/18/18 11:40 Urine Blood Negative (NEGATIVE) 09/18/18 11:40 Urine Nitrite Negative (NEGATIVE) 09/18/18 11:40 Urine Bilirubin Negative (<2.0 mg/dL) 09/18/18 11:40 Urine Urobilinogen Negative mg/dL (0.2-1.0) 09/18/18 11:40 Ur Leukocyte Esterase Negative (NEGATIVE) 09/18/18 11:40 RPR Titer Nonreactive (NONREACTIVE) 09/19/18 06:00 lab noted counselor arranged transportation door to door service from detox unit to primary care [facility] patient is alert ambulate on [address] denies suicidal ideation coherent speech able to complete whole sentence when speak a list of medication and lab result provided to the patient patient agrees to share with medication list - Treatment Hospital Course: Detox Protocol Followed, Responded well Patient has Accepted a Rehab Referral to: primary care provider [facility] - Medication Discharge Medications: Ambulatory Orders Mirtazapine [Remeron -] 15 mg PO HS #30 tablet 04/22/18 Gabapentin 300 mg PO BID 05/23/18 Albuterol Sulfate Inhaler - [Ventolin HFA Inhaler -] 2 inh PO Q6H PRN #1 inhaler 05/25/18 Budesonide/Formeterol Fumarate [SYMBICORT 160/4.5mcg -] 2 inh PO BID #1 inhaler 05/25/18 - Diagnosis (1) Alcohol dependence with uncomplicated intoxication Status: Acute (2) BPH (benign prostatic hyperplasia) Status: Chronic Qualifiers: Lower urinary tract symptom presence: symptoms present Lower urinary tract symptom detail: urinary hesitancy Qualified Code(s): N40.1 - Benign prostatic hyperplasia with lower urinary tract symptoms; R39.11 - Hesitancy of micturition (3) Weight loss Status: Acute (4) COPD (chronic obstructive pulmonary disease) Status: Chronic Qualifiers: COPD type: unspecified COPD Qualified Code(s): J44.9 - Chronic obstructive pulmonary disease, unspecified (5) HTN (hypertension) Status: Chronic Qualifiers: Hypertension type: essential hypertension Qualified Code(s): I10 - Essential (primary) hypertension (6) Nicotine dependence Status: Acute Qualifiers: Nicotine product type: cigarettes Substance use status: in withdrawal Qualified Code(s): F17.213 - Nicotine dependence, cigarettes, with withdrawal - AMA Did Patient Leave Against Medical Advice: Yes
[2018-09-19 10:44] LABS: ALBUMIN 4.1 g/dl (3.4-5.0); ALK PHOS 97 U/L (45-117); ANION GAP 8 MMOL/L (8-16); BILIRUBIN,TOTAL 0.6 mg/dL (0.2-1); BLOOD UREA NITROGEN 7 mg/dL (7-18); CALCIUM 8.8 mg/dL (8.5-10.1); CHLORIDE 99 mmol/L (98-107); CO2 30 mmol/L (21-32); CREATININE 0.7 mg/dL (0.55-1.3); GLUCOSE,RANDOM 94 mg/dL (74-106); POTASSIUM 4.2 mmol/L (3.5-5.1); SGOT/AST 139 U/L (15-37); SGPT/ALT 197 U/L (13-61); SODIUM 137 mmol/L (136-145); TOT PROT 7.2 g/dl (6.4-8.2)
[2018-09-19 11:05] LABS: HEMATOCRIT 45.7 % (35.4-49); HEMOGLOBIN 15.5 GM/dL (11.7-16.9); MCH 32.6 pg (25.7-33.7); MCHC 33.8 g/dl (32.0-35.9); MEAN CELL VOLUME 96.4 fl (80-96); PLATELET COUNT 201 K/MM3 (134-434); RBC 4.74 M/mm3 (4.00-5.60); RDW 15.5 % (11.9-15.9); WHITE BLOOD COUNT 5.3 K/mm3 (4.0-10.0)
[2018-09-19] MEDS ORDERED: chlordiazePOXIDE HCL 25 MG CAPSULE PO SCH (17:00)
[2018-09-20] MEDS ORDERED: predniSONE 10 MG TABLET (UD) PO SCH (06:00)
[2018-09-20] MEDS ORDERED: chlordiazePOXIDE 5 MG CAPSULE PO SCH (17:00)
[2018-09-21] MEDS ORDERED: chlordiazePOXIDE HCL 10 MG CAPSULE PO SCH (17:00)
== END 2018-09-19 10:01 | disposition left against medical advice (07) | DRG 770 ==
LOC: YASAS 09:37 → Y3N 10:46
PROVIDERS: ADMIT Surgery; ATTEND Surgery
PROC: HZ2ZZZZ Detoxification Services for Substance Abuse Treatment (ICD-10-PCS; principal; 2018-09-18)
DX: F10.230 Alcohol dependence with withdrawal, uncomplicated (principal); F10.220 Alcohol dependence with intoxication, uncomplicated; F17.210 Nicotine dependence, cigarettes, uncomplicated; F31.9 Bipolar disorder, unspecified; I10 Essential (primary) hypertension; J44.9 Chronic obstructive pulmonary disease, unspecified; N40.1 Benign prostatic hyperplasia with lower urinary tract symptoms; R06.02 Shortness of breath; R42 Dizziness and giddiness; R78.0 Finding of alcohol in blood; C34.90 Malignant neoplasm of unspecified part of unspecified bronchus or lung
CPT/HCPCS: 36415; 80053; 81003; 85027; 86593; 94640

== ENCOUNTER 2018-09-18 17:51 | Emergency (ER) | payer OTHER ==
[2018-09-18 18:15] VITALS: TEMP 99.5; BMI 24.3
[2018-09-18] MEDS ORDERED: FOLIC ACID INJECTION - 1 MG, THIAMINE HCL 100 MG, MULTIVIT INJECTION ADULT 10 ML in SOD... IVPB ONE (20:28)
[2018-09-18] MEDS ORDERED: chlordiazePOXIDE HCL 25 MG CAPSULE PO ONE (20:28)
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
[2018-09-18] MEDS ORDERED: LORazepam 2 MG/ML SDV VIAL ONE (20:53)
[2018-09-18] MEDS ORDERED: chlordiazePOXIDE HCL 25 MG CAPSULE ONE (20:53)
[2018-09-18 21:01] LABS: BASO % 0.3 % (0-2.0); EOS % 0.2 % (0-4.5); HEMATOCRIT 43.8 % (35.4-49); HEMOGLOBIN 15.3 GM/dL (11.7-16.9); LYMPH % 6.7 % (8-40); MCH 33.4 pg (25.7-33.7); MEAN CELL VOLUME 95.4 fl (80-96); MEAN PLT VOLUME 9.4 fl (7.5-11.1); MONO % 3.4 % (3.8-10.2); NEUT % 89.4 % (42.8-82.8); PLATELET COUNT 200 K/MM3 (134-434); RBC 4.59 M/mm3 (4.00-5.60); RDW 15.1 % (11.9-15.9); WHITE BLOOD COUNT 5.7 K/mm3 (4.0-10.0)
[2018-09-18 21:18] VITALS: BP 145/100; PULSE 82
[2018-09-18 21:49] LABS: ALBUMIN 3.8 g/dl (3.4-5.0); ALK PHOS 85 U/L (45-117); ANION GAP 11 MMOL/L (8-16); BILIRUBIN,TOTAL 0.8 mg/dL (0.2-1); BLOOD UREA NITROGEN 9 mg/dL (7-18); CALCIUM 9.6 mg/dL (8.5-10.1); CHLORIDE 101 mmol/L (98-107); CO2 26 mmol/L (21-32); CREATININE 0.5 mg/dL (0.55-1.3); GLUCOSE,RANDOM 92 mg/dL (74-106); SGPT/ALT 179 U/L (13-61); SODIUM 138 mmol/L (136-145); TOT PROT 6.9 g/dl (6.4-8.2)
[2018-09-18 21:50] LABS: MAGNESIUM 2.3 mg/dL (1.8-2.4); POTASSIUM 4.8 mmol/L (3.5-5.1); SGOT/AST 116 U/L (15-37)
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
--- NOTE | 2018-09-19 15:39 | EKG ---
Test Reason : Blood Pressure : / mmHG Vent. Rate : 068 BPM Atrial Rate : 068 BPM P-R Int : 160 ms QRS Dur : 114 ms QT Int : 452 ms P-R-T Axes : 027 056 066 degrees QTc Int : 480 ms NORMAL SINUS RHYTHM WITH SINUS ARRHYTHMIA LOW VOLTAGE QRS T WAVE ABNORMALITY, CONSIDER ANTERIOR ISCHEMIA PROLONGED QT ABNORMAL ECG WHEN COMPARED WITH ECG OF 18-SEP-2018 20:38, NO SIGNIFICANT CHANGE WAS FOUND Confirmed by SANDRA WU, SANDRO ([id number]) on 09/19/2018 3:39:36 PM Referred By: Confirmed By:SANDRO FLORES MD
--- NOTE | 2018-09-19 15:41 | EKG ---
Test Reason : Blood Pressure : / mmHG Vent. Rate : 086 BPM Atrial Rate : 086 BPM P-R Int : 158 ms QRS Dur : 108 ms QT Int : 408 ms P-R-T Axes : 063 056 071 degrees QTc Int : 488 ms NORMAL SINUS RHYTHM LOW VOLTAGE QRS PROLONGED QT ABNORMAL ECG WHEN COMPARED WITH ECG OF 24-JUL-2018 09:53, NO SIGNIFICANT CHANGE WAS FOUND Confirmed by SANDRO FLORES MD ([id number]) on 09/19/2018 3:40:44 PM Referred By: Confirmed By:SANDRO FLORES MD
== END 2018-09-19 03:15 | disposition home or self-care (01) ==
LOC: JER 17:51
PROC: 3E033GC Introduction of Other Therapeutic Substance into Peripheral Vein, Percutaneous Approach (ICD-10-PCS; principal; 2018-09-18)
PROC: 3E033NZ Introduction of Analgesics, Hypnotics, Sedatives into Peripheral Vein, Percutaneous Approach (ICD-10-PCS; 2018-09-18)
DX: R06.02 Shortness of breath (principal); F10.20 Alcohol dependence, uncomplicated; Z87.828 Personal history of other (healed) physical injury and trauma; F17.210 Nicotine dependence, cigarettes, uncomplicated
CPT/HCPCS: 36415; 71046-TC-FY; 80053; 80307; 82550; 82553; 83735; 84484; 85025; 87804; 93005; 93010; 99283-25; J7030

== ENCOUNTER 2019-03-18 11:40 | Inpatient (IN) | payer OTHER | END 2019-03-20 10:06 | disposition home or self-care (01) | LOC: YASAS 11:40 → Y6N 14:53 ==

== ENCOUNTER 2019-05-08 09:39 | Inpatient (IN) | payer OTHER ==
[2019-05-08 10:12] VITALS: BMI 22.7
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
[2019-05-08] MEDS ORDERED: MAGNESIUM CITRATE 300 ML BOTTLE PO PRN (11:03)
[2019-05-08] MEDS ORDERED: BISMUTH SUBSALICYLATE 262 MG/15 ML BTL PO PRN (11:03)
[2019-05-08] MEDS ORDERED: chlordiazePOXIDE HCL 10 MG CAPSULE PO PRN (11:03)
[2019-05-08] MEDS ORDERED: MAGNESIUM HYDROX 2400MG/30ML ORAL SUSPENSION 30 ML CUP PO PRN (11:03)
[2019-05-08] MEDS ORDERED: IBUPROFEN 400 MG TABLET (FP) PO PRN (11:03)
[2019-05-08] MEDS ORDERED: ACETAMINOPHEN 325 MG TABLET (FP) PO PRN ×2 (11:03)
[2019-05-08] MEDS ORDERED: hydrOXYzine PAMOATE 25 MG CAPSULE (FP) PO PRN (11:03)
[2019-05-08] MEDS ORDERED: MAG HYDROX/AL HYDROX/SIMETH 30 ML UNIT-DOSE CUP PO PRN (11:03)
[2019-05-08] MEDS ORDERED: MENTHOL/PHENOL 1 EACH UD MM PRN (11:03)
[2019-05-08] MEDS: chlordiazePOXIDE HCL 25 MG CAPSULE PO SCH ×2 (13:49→22:28)
[2019-05-08] MEDS: MELATONIN 5 MG TABLETS PO PRN (22:28)
[2019-05-08] MEDS: THIAMINE HCL 100 MG TABLET (FP) PO SCH (22:28)
[2019-05-09] MEDS: chlordiazePOXIDE HCL 25 MG CAPSULE PO SCH (05:42)
[2019-05-09] MEDS: chlordiazePOXIDE 5 MG CAPSULE PO SCH ×3 (07:48→21:42)
[2019-05-09] MEDS: PRENATAL VITAMINS W/ FOLIC ACID TABLET (FP) PO SCH (10:20)
[2019-05-09 10:35] LABS: HEMOGLOBIN 14.1 GM/dL (11.7-16.9); MCH 32.7 pg (25.7-33.7); MCHC 33.5 g/dl (32.0-35.9); MEAN CELL VOLUME 97.5 fl (80-96); MEAN PLT VOLUME 9.5 fl (7.5-11.1); PLATELET COUNT 243 K/MM3 (134-434); RBC 4.31 M/mm3 (4.00-5.60); RDW 13.2 % (11.9-15.9)
[2019-05-09 11:00] LABS: ALBUMIN 3.3 g/dl (3.4-5.0); BILIRUBIN,TOTAL 2.2 mg/dL (0.2-1); BLOOD UREA NITROGEN 9.6 mg/dL (7-18); CALCIUM 9.2 mg/dL (8.5-10.1); CREATININE 0.7 mg/dL (0.55-1.3); POTASSIUM 4.4 mmol/L (3.5-5.1); TOT PROT 6.2 g/dl (6.4-8.2)
[2019-05-09] MEDS ORDERED: NICOTINE 21 MG/24 HOURS TOPICAL PATCH TD SCH (14:15)
--- NOTE | 2019-05-09 14:15 | PN ---
S CIWA - CIWA Score Nausea/Vomitin-No Nausea/No Vomiting Muscle Tremors: 2 Anxiety: 3 Agitation: 2 Paroxysmal Sweats: 2 Orientation: 0-Oriented Tacttile Disturbances: 0-None Auditory Disturbances: 0-None Visual Disturbances: 0-None Headache: 0-None Present CIWA-Ar Total Score: 9 BHS Progress Note (SOAP) Subjective: Anxious, Sweating, Tremors. Objective: PATIENT A & O X 3, OBSERVED AMBULATING ON DETOX UNIT UNASSISTED. IN NO ACUTE DISTRESS. 05/09/19 14:12 Vital Signs Temperature 97.0 F L 05/09/19 13:24 Pulse Rate 84 05/09/19 13:24 Respiratory Rate 18 05/09/19 13:24 Blood Pressure 122/84 05/09/19 13:24 O2 Sat by Pulse Oximetry (%) Laboratory Tests 05/09/19 05/09/19 05/09/19 08:00 08:00 08:00 WBC 4.0 RBC 4.31 Hgb 14.1 Hct 42.0 MCV 97.5 H MCH 32.7 MCHC 33.5 RDW 13.2 Plt Count 243 D MPV 9.5 Sodium 141 Potassium 4.4 Chloride 105 Carbon Dioxide 28 Anion Gap 8 BUN 9.6 Creatinine 0.7 Est GFR (CKD-EPI)AfAm 119.72 Est GFR (CKD-EPI)NonAf 103.30 Random Glucose 126 H Calcium 9.2 Total Bilirubin 2.2 H AST 26 ALT 29 Alkaline Phosphatase 82 Total Protein 6.2 L Albumin 3.3 L RPR Titer Nonreactive LABS NOTED. PATIENT HAS HAD ELEVATED TOTAL BILIRUBIN AND RANDOM GLUCOSE LEVELS ON PREVIOUS ADMISSIONS. 05/09/19 14:18 Assessment: 05/09/19 14:12 WITHDRAWAL SYMPTOMS. HYPERBILIRUBINEMIA. 05/09/19 14:17 Plan: CONTINUE DETOX. INCREASE DAILY PO WATER INTAKE. REPEAT TOTAL BILIRUBIN LEVEL TO BE DRAWN TOMORROW FOR ELEVATED TOTAL BILIRUBIN LEVEL NOTED ON DETOX ADMISSION LABORATORY ASSESSMENT. FASTING GLUCOSE LEVEL ORDERED FOR TOMORROW AM FOR ELEVATED RANDOM GLUCOSE LEVEL NOTED ON DETOX ADMISSION LABORATORY ASSESSMENT.
[2019-05-09] MEDS: MELATONIN 5 MG TABLETS PO PRN (21:41)
[2019-05-09] MEDS: THIAMINE HCL 100 MG TABLET (FP) PO SCH (21:41)
[2019-05-10] MEDS: chlordiazePOXIDE HCL 10 MG CAPSULE PO SCH ×3 (05:58→22:51)
[2019-05-10] MEDS ORDERED: NICOTINE POLACRILEX 2 MG GUM BUC PRN (09:51)
[2019-05-10] MEDS: PRENATAL VITAMINS W/ FOLIC ACID TABLET (FP) PO SCH (10:22)
--- NOTE | 2019-05-10 16:36 | PN ---
[facility] CIWA - CIWA Score Nausea/Vomitin-No Nausea/No Vomiting Muscle Tremors: None Anxiety: 0-No Anxiety, at Ease Agitation: 2 Paroxysmal Sweats: No Perspiration Orientation: 0-Oriented Tacttile Disturbances: 0-None Auditory Disturbances: 0-None Visual Disturbances: 0-None Headache: 0-None Present CIWA-Ar Total Score: 2 BHS Progress Note (SOAP) Subjective: Patient reports that Withdrawal / Detox symptoms have subsided considerably and that he feels well overall at this time. Objective: PATIENT A & O X 3, OBSERVED AMBULATING ON DETOX UNIT UNASSISTED. IN NO ACUTE DISTRESS. 05/10/19 16:34 Vital Signs Temperature 98.1 F 05/10/19 09:20 Pulse Rate 76 05/10/19 14:48 Respiratory Rate 18 05/10/19 14:48 Blood Pressure 106/68 05/10/19 14:48 O2 Sat by Pulse Oximetry (%) Laboratory Tests 05/09/19 05/09/19 05/09/19 08:00 08:00 08:00 WBC 4.0 RBC 4.31 Hgb 14.1 Hct 42.0 MCV 97.5 H MCH 32.7 MCHC 33.5 RDW 13.2 Plt Count 243 D MPV 9.5 Sodium 141 Potassium 4.4 Chloride 105 Carbon Dioxide 28 Anion Gap 8 BUN 9.6 Creatinine 0.7 Est GFR (CKD-EPI)AfAm 119.72 Est GFR (CKD-EPI)NonAf 103.30 Random Glucose 126 H Calcium 9.2 Total Bilirubin 2.2 H AST 26 ALT 29 Alkaline Phosphatase 82 Total Protein 6.2 L Albumin 3.3 L RPR Titer Nonreactive LABS NOTED. PATIENT REFUSED TO HAVE FASTING GLUCOSE LEVEL AND TOTAL BILIRUBIN LEVEL DRAWN EARLIER TODAY RECOMMENDED. 05/10/19 16:35 Assessment: 05/10/19 16:35 WITHDRAWAL SYMPTOMS. HYPERBILIRUBINEMIA. HYPERGLYCEMIA. Plan: CONTINUE DETOX. PATIENT SCHEDULED FOR D/C FROM DETOX UNIT TOMORROW.
[2019-05-10] MEDS: THIAMINE HCL 100 MG TABLET (FP) PO SCH (22:52)
[2019-05-10] MEDS: MELATONIN 5 MG TABLETS PO PRN (22:53)
--- NOTE | 2019-05-11 01:00 | PN ---
MARJORIE Progress Note Note: ASKED TO SEE CLIENT FOR REPORTED FALL. CLIENT REPORTS TRIPPING ON HIS PANTS LEG WHILE ATTEMPTING TO RISE FROM A SEATED POSITION FROM THE TOILET. HE REPORTS LOSING HIS BALANCE AND FALLING ON HIS RIGHT SIDE. LANDING ON HIS RIGHT HIP. DENIES HITTING HIS HEAD, LOC, DIZZINESS, C.P. DENIES C/O R HIP PAIN . Last Vital Signs Temp Pulse Resp BP Pulse Ox 96.7 F L 78 18 118/84 05/11/19 00:53 05/11/19 00:53 05/11/19 00:53 05/11/19 00:53 SEEN LYING IN BED A/O X3 NAD- HEENT- NCAT, PERRLA, EOMI SKIN- INTACT NO INJURIES EXTREMITIES- R HIP TENDERNESS WITH C/O WORSENING PAIN WHEN WHEN AMBULATING. UNSTEADY GAIT NOTED DUE TO PAIN. A/P- UNWITNESSED FALL TRANSFER TO [facility] FOR R HIP-XRAY CT- SCAN OF HEAD PER PROTOCOL FOR UNWITNESSED FALL FALL PROTOCOL #1. CLIENT MAY RETURN AFTER BEING CLEARED FOR ABOVE CLIENT ENDORSED TO DR. KRISHNAN
[2019-05-11] MEDS ORDERED: chlordiazePOXIDE HCL 10 MG CAPSULE PO ONE (05:00)
[2019-05-11 06:48] VITALS: BP 126/91; PULSE 63; TEMP 96.9
== END 2019-05-11 07:15 | disposition home or self-care (01) | DRG 775 ==
LOC: YASAS 09:39 → Y3N 12:13
PROVIDERS: ADMIT Surgery; ATTEND Surgery
PROC: HZ2ZZZZ Detoxification Services for Substance Abuse Treatment (ICD-10-PCS; principal; 2019-05-08)
DX: F10.230 Alcohol dependence with withdrawal, uncomplicated (principal); F12.10 Cannabis abuse, uncomplicated; F17.210 Nicotine dependence, cigarettes, uncomplicated; J44.9 Chronic obstructive pulmonary disease, unspecified; E80.6 Other disorders of bilirubin metabolism; R73.9 Hyperglycemia, unspecified; S79.811A Other specified injuries of right hip, initial encounter; M25.551 Pain in right hip; W18.11XA Fall from or off toilet without subsequent striking against object, initial encounter; Y93.89 Activity, other specified; Y92.231 Patient bathroom in hospital as the place of occurrence of the external cause; Y99.8 Other external cause status; Z87.828 Personal history of other (healed) physical injury and trauma; Z91.013 Allergy to seafood
CPT/HCPCS: 36415; 80053; 85027; 86593

== ENCOUNTER 2019-05-11 02:16 | Emergency (ER) | payer OTHER ==
--- NOTE | 2019-05-11 02:31 | PDOC ---
Attending Attestation - Resident Resident Name: Barbara Lamb - ED Attending Attestation I have performed the following: I have examined & evaluated the patient, The case was reviewed & discussed with the resident, I agree w/resident's findings & plan - HPI HPI: 05/11/19 04:53 Pr sent from [facility] because he stumbled in the bathroom. Pt states that he hit only his right hip. No head trauma. He is alert and awake and appears well. - Physicial Exam PE: 05/11/19 04:54 Agree with resident exam. Normal exam. Pt is able to ambulate in the ER; he is limping a bit and favoring his right side. Pt has no abd pain and normal neuro exam. Heart and lungs normal - Medical Decision Making 05/11/19 05:12 Pt is stable to return to his detox bed at [facility]. He is completely stable to be transported back. No need for further testing.
[2019-05-11 03:04] VITALS: BP 122/80; PULSE 64; TEMP 97.4; BMI 49.8
--- NOTE | 2019-05-11 03:20 | PDOC ---
History of Present Illness - General Chief Complaint: Injury Stated Complaint: FALL Time Seen by Provider: 05/11/19 02:21 - History of Present Illness Initial Comments: 05/11/19 03:17 59M hx COPD, HTN, BPH, anemia, R lung cancer, bipolar, and hx of EtOH abuse BIBA from [facility] c/o R hip pain s/p mechanical fall onto R hip this evening. Pt was in bathroom tonight trying to get dressed and tripped on clothing and fell onto R hip only. Denies hitting R shoulder, R knee, head or any other parts of body. Pt c/o minimal R hip pain worse with movement causing limping, almost completely resolved now after taking motrin. Denies head injury, LOC, amnesia, seizure, blood thinner use, back pain, neck pain, R knee or leg pain, RUE pain, R rib pain, other pains, fever, chills, fatigue, headache, dizziness, numbness/tingling, weakness, vision changes, shortness of breath, cough, chest pain, palpitations, leg swelling, abdominal pain, blood in stool, diarrhea, constipation, nausea, vomiting, dysuria, hematuria, confusion. Pt in detox for 4 days for alcohol abuse, planned for d/c this AM and going to rehab in [place] tomorrow. Past History - Past Medical History Allergies/Adverse Reactions: Allergies Allergy/AdvReac Type Severity Reaction Status Date / Time Fish Containing Products Allergy Intermediate Hives Verified 05/11/19 02:41 Home Medications: Ambulatory Orders NK [No Known Home Medication] 03/18/19 Anemia: No Asthma: No Cancer: Yes (lung ca) Cardiac Disorders: No CVA: No COPD: Yes (advanced) CHF: No Dementia: No Diabetes: No GI Disorders: No Disorders: No HTN: No Hypercholesterolemia: No Kidney Stones: No Liver Disease: No Seizures: No Thyroid Disease: No - Surgical History Abdominal Surgery: No Appendectomy: No Cardiac Surgery: No Cholecystectomy: No Lung Surgery: Yes Neurologic Surgery: No Orthopedic Surgery: No - Reproductive History Testicular Surgery: No - Psycho Social/Smoking Cessation Hx Smoking History: Current every day smoker Have you smoked in the past 12 months: Yes Number of Cigarettes Smoked Daily: 20 Information on smoking cessation initiated: No 'Breaking Loose' booklet given: 03/18/19 Hx Alcohol Use: Yes Drug/Substance Use Hx: No Substance Use Type: Alcohol Hx Substance Use Treatment: Yes Review of Systems - Review of Systems Comments:: 05/11/19 03:17 Constitutional: Negative for chills, fever, fatigue, diaphoresis. HENT: Negative for sore throat, rhinorrhea, congestion. Eyes: Negative for visual disturbance. Respiratory: Negative for shortness of breath, cough, and wheezing. Cardiovascular: Negative for chest pain, palpitations, and leg swelling. Gastrointestinal: Negative for abdominal pain, blood in stool, constipation, diarrhea, nausea, and vomiting. Genitourinary: Negative for dysuria, flank pain, and hematuria. Musculoskeletal: Positive for R hip pain. Negative for myalgias, back pain, and neck pain. Skin: Negative for rash. 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: Negative for light-headedness, dizziness, vertigo, syncope, weakness, numbness and headaches. Psychiatric/Behavioral: Negative for confusion. *Physical Exam - Vital Signs Last Vital Signs Temp Pulse Resp BP Pulse Ox 97.4 F L 64 18 122/80 98 05/11/19 02:37 05/11/19 02:37 05/11/19 02:37 05/11/19 02:37 05/11/19 02:37 - Physical Exam Comments: 05/11/19 03:17 Gen: Alert, NAD, comfortable-appearing. HEENT: PERRL, EOMI, MMM, NCAT. No conjunctival pallor. Sclera are non-icteric. No raccoon eyes, Piper's sign, CSF sylwia/rhinorrhea, or hemotympanum. CV: Regular rate and rhythm. No murmurs, rubs, or gallops. PULM: No resp distress. CTAB, no wheezes, rales, or rhonchi. ABD: soft, NT/ND, no rebound tenderness or guarding, no CVA tenderness. BACK: No TTP of c/t/l-spine. No step-offs or deformities. MSK: Pelvis stable. No bony deformities. 2+ pulses in all extremities. RLE: 2+ pulses, <2 sec cap refill, sensation to light touch intact throughout, 5 /5 strength, full active and passive ROM of R hip and knee and ankle, no soft tissue or bony deformities, no TTP. NEURO: AAOx3. PERRL. CN 2-12 intact. 5/5 strength in all extremities. Sensation to light touch intact in all extremities. No pronator drift. No dysmetria. No dysdiadochokinesia. No abnormal nystagmus. No skew deviation. Antalgic gait 2/2 hip pain. EXTREMITIES: No cyanosis. No clubbing. No edema. No calf tenderness. PSYCH: Normal mood and thought pattern. SKIN: Warm and dry. Normal capillary refill. No rashes. No jaundice. Medical Decision Making - Medical Decision Making 05/11/19 03:17 59M hx COPD, HTN, BPH, anemia, R lung cancer, bipolar, and hx of EtOH abuse BIBA from [facility] for R hip pain s/p mechanical fall onto R hip this evening. Hemodynamically stable, afebrile, neurologically intact, benign R hip exam, RLE neurovascularly intact, antalgic gait 2/2 R hip pain. Most likely soft tissue injury, but r/o fx or dislocation of R hip with XR due to age and gait. No other complaints or signs of trauma or injury. No back pain, neck pain, R knee or leg pain, RUE pain, or R rib pain. No head injury, LOC, blood thinner use, N/ V, seizure, signs of open or depressed or basilar skull fx, or amnesia concerning for intracranial pathology. No dizziness, CP, palpitations, or aura prior to fall concerning for syncope. Pt took motrin at [facility] and states pain has improved and does not need any meds. -R hip XR -Dispo: likely d/c [facility] pending XR 05/11/19 05:15 XR wet read with Dr Costello - no acute pathology. Pt ambulating without difficulty. Denies pain or any complaints. Will dc to [facility] with PCP f/u. Return precautions given. Pt understands all dc instructions and all questions were answered. Discharge - Discharge Information Problems reviewed: Yes Clinical Impression/Diagnosis: Fall, Hip pain, right Condition: Improved Disposition: HOME - Admission No - Follow up/Referral - Patient Discharge Instructions Patient Printed Discharge Instructions: DI for Hip Pain Additional Instructions: You have been seen in the Emergency Department for your right hip injury and pain. Your X-ray shows no signs of fracture or dislocation. Your pain is most likely a strain or sprain of a ligament or muscle. We have given you a referral to an Orthopedic Surgeon for further evaluation. Give his office a call to set up an appointment for this week. If you experience pain, you can take Tylenol or Ibuprofen as directed on the medication bottle, but do not exceed 3g of Ibuprofen or 4g of Tylenol a day. Follow the RICE protocol to help with the healing process: R - Rest. Rest and protect the injured or sore area. Stop, change, or take a break from any activity that may be causing your pain or soreness. I - Ice. Cold will reduce pain and swelling. Apply an ice or cold pack right away to prevent or minimize swelling. Apply the ice or cold pack for 10 to 20 minutes, 3 or more times a day. After 48 to 72 hours, if swelling is gone, apply heat to the area that hurts. Do not apply ice or heat directly to the skin. Place a towel over the cold or heat pack before applying it to the skin. C - Compression. Compression, or wrapping the injured or sore area with an elastic bandage (such as an Munir wrap), will help decrease swelling. Don't wrap it too tightly, because this can cause more swelling below the affected area. Loosen the bandage if it gets too tight. Signs that the bandage is too tight include numbness, tingling, increased pain, coolness, or swelling in the area below the bandage. E - Elevation. Elevate the injured or sore area on pillows while applying ice and anytime you are sitting or lying down. Try to keep the area at or above the level of your heart to help minimize swelling. Return to the ED immediately if you experience worsening pain not controlled by over the counter medications, numbness or tingling, weakness, fever, worsening swelling, or any other new or worsening symptom. - Post Discharge Activity
== END 2019-05-11 06:34 | disposition home or self-care (01) ==
LOC: JER 02:16
DX: M25.551 Pain in right hip (principal); W18.09XA Striking against other object with subsequent fall, initial encounter; Y93.89 Activity, other specified; Y92.231 Patient bathroom in hospital as the place of occurrence of the external cause; Y99.8 Other external cause status; I10 Essential (primary) hypertension; J44.9 Chronic obstructive pulmonary disease, unspecified; N40.0 Benign prostatic hyperplasia without lower urinary tract symptoms; D64.9 Anemia, unspecified; F31.9 Bipolar disorder, unspecified; F10.10 Alcohol abuse, uncomplicated; F17.210 Nicotine dependence, cigarettes, uncomplicated; Z85.118 Personal history of other malignant neoplasm of bronchus and lung; Z91.013 Allergy to seafood
CPT/HCPCS: 73502-TC-RT-FY; 99281-25

== ENCOUNTER 2019-07-04 18:42 | Inpatient (IN) | payer OTHER ==
[2019-07-04 20:57] VITALS: BMI 23.9
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
[2019-07-04] MEDS ORDERED: IBUPROFEN 400 MG TABLET (FP) PO PRN (22:49)
[2019-07-04] MEDS ORDERED: MAGNESIUM CITRATE 300 ML BOTTLE PO PRN (22:49)
[2019-07-04] MEDS ORDERED: MELATONIN 5 MG TABLETS PO PRN (22:49)
[2019-07-04] MEDS ORDERED: hydrOXYzine PAMOATE 25 MG CAPSULE (FP) PO PRN (22:49)
[2019-07-04] MEDS ORDERED: ACETAMINOPHEN 325 MG TABLET (FP) PO PRN ×2 (22:49)
[2019-07-04] MEDS ORDERED: MAG HYDROX/AL HYDROX/SIMETH 30 ML UNIT-DOSE CUP PO PRN (22:49)
[2019-07-04] MEDS ORDERED: MAGNESIUM HYDROX 2400MG/30ML ORAL SUSPENSION 30 ML CUP PO PRN (22:49)
[2019-07-04] MEDS ORDERED: MENTHOL/PHENOL 1 EACH UD MM PRN (22:49)
[2019-07-04] MEDS ORDERED: BISMUTH SUBSALICYLATE 524 MG/30 ML UD PO PRN (22:49)
[2019-07-04] MEDS ORDERED: LORazepam 1 MG TABLET PO PRN (22:51)
[2019-07-05] MEDS: LORazepam 2 MG TABLET PO SCH ×5 (00:27→22:24)
[2019-07-05] MEDS: PRENATAL VITAMINS W/ FOLIC ACID TABLET (FP) PO SCH (10:32)
[2019-07-05 10:49] LABS: ALBUMIN 3.3 g/dl (3.4-5.0); BILIRUBIN,TOTAL 1.1 mg/dL (0.2-1); BLOOD UREA NITROGEN 7.3 mg/dL (7-18); CALCIUM 8.7 mg/dL (8.5-10.1); CREATININE 0.8 mg/dL (0.55-1.3); POTASSIUM 3.9 mmol/L (3.5-5.1); TOT PROT 5.9 g/dl (6.4-8.2)
[2019-07-05 11:05] LABS: HEMATOCRIT 41.2 % (35.4-49); HEMOGLOBIN 13.6 GM/dL (11.7-16.9); MCH 30.6 pg (25.7-33.7); MEAN CELL VOLUME 92.8 fl (80-96); MEAN PLT VOLUME 9.5 fl (7.5-11.1); PLATELET COUNT 228 K/MM3 (134-434); RBC 4.44 M/mm3 (4.00-5.60); RDW 13.9 % (11.9-15.9); WHITE BLOOD COUNT 3.3 K/mm3 (4.0-10.0)
--- NOTE | 2019-07-05 11:43 | PN ---
S CIWA - CIWA Score Nausea/Vomitin-No Nausea/No Vomiting Muscle Tremors: 2 Anxiety: 3 Agitation: 0-Normal Activity Paroxysmal Sweats: 3 Orientation: 0-Oriented Tacttile Disturbances: 0-None Auditory Disturbances: 0-None Visual Disturbances: 0-None Headache: 2-Mild CIWA-Ar Total Score: 10 S Progress Note (SOAP) Subjective: c/o anxiety, headache, and sweats. Objective: 07/05/19 11:42 Vital Signs 07/05/19 07/05/19 06:32 09:16 Temperature 98 F 97.5 F L Pulse Rate 66 100 H Respiratory 18 20 Rate Blood Pressure 121/81 108/71 Laboratory Last Values WBC 3.3 K/mm3 (4.0-10.0) L 07/05/19 07:50 RBC 4.44 M/mm3 (4.00-5.60) 07/05/19 07:50 Hgb 13.6 GM/dL (11.7-16.9) 07/05/19 07:50 Hct 41.2 % (35.4-49) 07/05/19 07:50 MCV 92.8 fl (80-96) 07/05/19 07:50 MCH 30.6 pg (25.7-33.7) 07/05/19 07:50 MCHC 33.0 g/dl (32.0-35.9) 07/05/19 07:50 RDW 13.9 % (11.9-15.9) 07/05/19 07:50 Plt Count 228 K/MM3 (134-434) 07/05/19 07:50 MPV 9.5 fl (7.5-11.1) 07/05/19 07:50 Sodium 141 mmol/L (136-145) 07/05/19 07:50 Potassium 3.9 mmol/L (3.5-5.1) 07/05/19 07:50 Chloride 107 mmol/L (98-107) 07/05/19 07:50 Carbon Dioxide 25 mmol/L (21-32) 07/05/19 07:50 Anion Gap 9 MMOL/L (8-16) 07/05/19 07:50 BUN 7.3 mg/dL (7-18) 07/05/19 07:50 Creatinine 0.8 mg/dL (0.55-1.3) 07/05/19 07:50 Est GFR (CKD-EPI)AfAm 113.33 07/05/19 07:50 Est GFR (CKD-EPI)NonAf 97.78 07/05/19 07:50 Random Glucose 97 mg/dL (74-106) 07/05/19 07:50 Calcium 8.7 mg/dL (8.5-10.1) 07/05/19 07:50 Total Bilirubin 1.1 mg/dL (0.2-1) H 07/05/19 07:50 AST 20 U/L (15-37) 07/05/19 07:50 ALT 17 U/L (13-61) 07/05/19 07:50 Alkaline Phosphatase 72 U/L (45-117) 07/05/19 07:50 Total Protein 5.9 g/dl (6.4-8.2) L 07/05/19 07:50 Albumin 3.3 g/dl (3.4-5.0) L 07/05/19 07:50 Labs noted. Assessment: 07/05/19 11:43 AOX3, in no acute respiratory distress. Full ROM, ambulating in the unit. withdrawal symptoms. Plan: continue detox.
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
[2019-07-05] MEDS ORDERED: THIAMINE HCL 100 MG TABLET (FP) PO SCH (22:00)
[2019-07-06] MEDS: LORazepam 1 MG TABLET PO SCH ×2 (05:14→10:29)
[2019-07-06 09:19] VITALS: BP 133/90; PULSE 91; TEMP 97.3
[2019-07-06] MEDS: PRENATAL VITAMINS W/ FOLIC ACID TABLET (FP) PO SCH (10:28)
--- NOTE | 2019-07-06 10:36 | DS ---
[facility] Detox Discharge Summary Admission Date: 07/04/19 Discharge Date: 07/06/19 - Physical Exam Results Vital Signs: Vital Signs Temperature 97.3 F L 07/06/19 09:19 Pulse Rate 91 H 07/06/19 09:19 Respiratory Rate 20 07/06/19 09:19 Blood Pressure 133/90 07/06/19 09:19 O2 Sat by Pulse Oximetry (%) - Medication Discharge Medications: Ambulatory Orders NK [No Known Home Medication] 03/18/19
--- NOTE | 2019-07-06 10:45 | PN ---
S CIWA - CIWA Score Nausea/Vomitin-No Nausea/No Vomiting Muscle Tremors: 2 Anxiety: 3 Agitation: 1-Slight > Activity Paroxysmal Sweats: No Perspiration Orientation: 0-Oriented Tacttile Disturbances: 0-None Auditory Disturbances: 0-None Visual Disturbances: 0-None Headache: 0-None Present CIWA-Ar Total Score: 6 BHS Progress Note (SOAP) Subjective: 59 years old male admitted on 07/04/19 for alcohol withdrawal sx management treated with ativan detox regimen ate breakfast resting on bed comfortably Objective: 07/06/19 10:45 Vital Signs Temperature 97.3 F L 07/06/19 09:19 Pulse Rate 91 H 07/06/19 09:19 Respiratory Rate 20 07/06/19 09:19 Blood Pressure 133/90 07/06/19 09:19 O2 Sat by Pulse Oximetry (%) Laboratory Last Values WBC 3.3 K/mm3 (4.0-10.0) L 07/05/19 07:50 RBC 4.44 M/mm3 (4.00-5.60) 07/05/19 07:50 Hgb 13.6 GM/dL (11.7-16.9) 07/05/19 07:50 Hct 41.2 % (35.4-49) 07/05/19 07:50 MCV 92.8 fl (80-96) 07/05/19 07:50 MCH 30.6 pg (25.7-33.7) 07/05/19 07:50 MCHC 33.0 g/dl (32.0-35.9) 07/05/19 07:50 RDW 13.9 % (11.9-15.9) 07/05/19 07:50 Plt Count 228 K/MM3 (134-434) 07/05/19 07:50 MPV 9.5 fl (7.5-11.1) 07/05/19 07:50 Sodium 141 mmol/L (136-145) 07/05/19 07:50 Potassium 3.9 mmol/L (3.5-5.1) 07/05/19 07:50 Chloride 107 mmol/L (98-107) 07/05/19 07:50 Carbon Dioxide 25 mmol/L (21-32) 07/05/19 07:50 Anion Gap 9 MMOL/L (8-16) 07/05/19 07:50 BUN 7.3 mg/dL (7-18) 07/05/19 07:50 Creatinine 0.8 mg/dL (0.55-1.3) 07/05/19 07:50 Est GFR (CKD-EPI)AfAm 113.33 07/05/19 07:50 Est GFR (CKD-EPI)NonAf 97.78 07/05/19 07:50 Random Glucose 97 mg/dL (74-106) 07/05/19 07:50 Calcium 8.7 mg/dL (8.5-10.1) 07/05/19 07:50 Total Bilirubin 1.1 mg/dL (0.2-1) H 07/05/19 07:50 AST 20 U/L (15-37) 07/05/19 07:50 ALT 17 U/L (13-61) 07/05/19 07:50 Alkaline Phosphatase 72 U/L (45-117) 07/05/19 07:50 Total Protein 5.9 g/dl (6.4-8.2) L 07/05/19 07:50 Albumin 3.3 g/dl (3.4-5.0) L 07/05/19 07:50 lab noted Assessment: 07/06/19 10:45 alcohol withdrawal sx Plan: continue ativan detox regimen
[2019-07-07] MEDS ORDERED: LORazepam 0.5 MG TABLET PO PRN
[2019-07-07] MEDS ORDERED: LORazepam 0.5 MG TABLET PO SCH (05:00)
[2019-07-08] MEDS ORDERED: LORazepam 0.5 MG TABLET PO ONE (05:00)
== END 2019-07-06 12:08 | disposition left against medical advice (07) | DRG 770 ==
LOC: YASAS 18:42 → Y3N 23:04
PROVIDERS: ADMIT Allergy & Immunology; ATTEND Allergy & Immunology
PROC: HZ2ZZZZ Detoxification Services for Substance Abuse Treatment (ICD-10-PCS; principal; 2019-07-04)
DX: F10.230 Alcohol dependence with withdrawal, uncomplicated (principal); F12.10 Cannabis abuse, uncomplicated; F17.210 Nicotine dependence, cigarettes, uncomplicated; F31.9 Bipolar disorder, unspecified; J44.9 Chronic obstructive pulmonary disease, unspecified; Z91.013 Allergy to seafood
CPT/HCPCS: 36415; 80053; 85027; 86593

== ENCOUNTER 2019-10-08 13:07 | Inpatient (IN) | payer OTHER ==
--- NOTE | 2019-10-08 13:28 | BHS.RME ---
Substance Use & Tx History - Substance Use History Alcohol Substance amount: 3 packs of beers Frequency of use: Daily Substance route: Oral Date of Last Use: 10/08/19 Nicotine Substance amount: 1 pack Frequency of use: Less than 3 times per week Substance route: Smoking Date of Last Use: 10/06/19 - Last Treatment Date of last treatment: 07/04-07/06/19 Treatment type: Substance Use Disorder ([facility]) Where was last treatment: Detox Physical/Psych/Mental Status - Behavior General Behavior: Increased activity (restlessness, agitation) Eye Contact: Normal - Cooperativeness Cooperativeness: Cooperative - Thinking Thought Processes: Tight, Logical, Goal Directed Thought content: Future oriented - Physical Health Problems Is patient presently having any pain?: No Does patient presently have any injuries (include location): No Does patient currently have a fever: No Is patient : No CIWA Nausea/Vomitin Muscle Tremors: 2 Anxiety: 2 Agitation: 1-Slight > Activity Paroxysmal Sweats: 1-Minimal Palms Moist Orientation: 1-Uncertain about Date Tacttile Disturbances: 1-Very Mild Itch/Numbness Auditory Disturbances: 0-None Visual Disturbances: 0-None Headache: 0-None Present (still not yet in withdrawals, mild) CIWA-Ar Total Score: 11
[2019-10-08 14:06] VITALS: BMI 25.4
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
[2019-10-08] MEDS ORDERED: BISMUTH SUBSALICYLATE 524 MG/30 ML UD PO PRN (15:38)
[2019-10-08] MEDS ORDERED: ACETAMINOPHEN 325 MG TABLET (FP) PO PRN ×2 (15:38)
[2019-10-08] MEDS ORDERED: IBUPROFEN 400 MG TABLET (FP) PO PRN (15:38)
[2019-10-08] MEDS ORDERED: MAGNESIUM HYDROX 2400MG/30ML ORAL SUSPENSION 30 ML CUP PO PRN (15:38)
[2019-10-08] MEDS ORDERED: MENTHOL/PHENOL 1 EACH UD MM PRN (15:38)
[2019-10-08] MEDS ORDERED: MAGNESIUM CITRATE 300 ML BOTTLE PO PRN (15:38)
[2019-10-08] MEDS ORDERED: MAG HYDROX/AL HYDROX/SIMETH 30 ML UNIT-DOSE CUP PO PRN (15:38)
[2019-10-08] MEDS ORDERED: METHOCARBAMOL 500 MG TABLET PO PRN (15:38)
[2019-10-08] MEDS ORDERED: ONDANSETRON *ODT* 4 MG TABLET SL ONE (17:00)
[2019-10-08] MEDS: hydrOXYzine PAMOATE 25 MG CAPSULE (FP) PO SCH ×2 (17:08→22:16)
[2019-10-08] MEDS: chlordiazePOXIDE HCL 10 MG CAPSULE PO PRN (17:08)
[2019-10-08] MEDS ORDERED: TRIMETHOBENZAMIDE HCL 200MG/2ML INJ IM ONE (20:11)
--- NOTE | 2019-10-08 20:12 | PN ---
S Progress Note Note: pt vomiting not on meds Vital Signs - 24 hr 10/08/19 10/08/19 13:58 16:58 Temperature 97.1 F L 96.7 F L Pulse Rate 97 H 91 H Respiratory 18 18 Rate Blood Pressure 118/70 119/77 P : Tigan i.m x once
[2019-10-08] MEDS: THIAMINE HCL 100 MG TABLET (FP) PO SCH (22:16)
[2019-10-08] MEDS: chlordiazePOXIDE HCL 25 MG CAPSULE PO SCH (22:17)
[2019-10-08] MEDS: MELATONIN 5 MG TABLETS PO SCH (22:18)
[2019-10-09] MEDS: chlordiazePOXIDE HCL 25 MG CAPSULE PO SCH ×3 (05:41→22:36)
[2019-10-09] MEDS: hydrOXYzine PAMOATE 25 MG CAPSULE (FP) PO SCH ×5 (05:42→22:36)
--- NOTE | 2019-10-09 10:29 | PN ---
BHS CIWA - CIWA Score Nausea/Vomitin Muscle Tremors: 3 Anxiety: 1-Mildly Anxious Agitation: 1-Slight > Activity Paroxysmal Sweats: 2 Orientation: 0-Oriented Tacttile Disturbances: 0-None Auditory Disturbances: 0-None Visual Disturbances: 2-Mild Sensitivity Headache: 1-Very Mild (09/15) CIWA-Ar Total Score: 12 BHS Progress Note (SOAP) Subjective: 59 yars old male admitted on 10/08/19 for alcohol withdrawal sx management christy ating with librium detox regiment no vomiting today tolerated breakfast well left fore arm fx 09/2019 full cast full left fingers mobility skin warm and brisk capillary refilled Objective: 10/09/19 10:29 Vital Signs Temperature 98.7 F 10/09/19 08:55 Pulse Rate 87 10/09/19 08:55 Respiratory Rate 16 10/09/19 08:55 Blood Pressure 110/81 10/09/19 08:55 O2 Sat by Pulse Oximetry (%) 10/09/19 10:29 lab pending Assessment: 10/09/19 10:29 alcohol withdrawal Plan: librium regiment
[2019-10-09] MEDS: PRENATAL VITAMINS W/ FOLIC ACID TABLET (FP) PO SCH (10:36)
[2019-10-09] MEDS: NICOTINE 21 MG/24 HOURS TOPICAL PATCH TD SCH (10:37)
[2019-10-09] MEDS: NICOTINE POLACRILEX 2 MG GUM BUC PRN (10:37)
[2019-10-09 13:13] LABS: HEMATOCRIT 43.7 % (35.4-49); HEMOGLOBIN 14.8 GM/dL (11.7-16.9); MCH 31.3 pg (25.7-33.7); MCHC 33.8 g/dl (32.0-35.9); MEAN CELL VOLUME 92.8 fl (80-96); MEAN PLT VOLUME 9.8 fl (7.5-11.1); PLATELET COUNT 220 K/MM3 (134-434); RBC 4.72 M/mm3 (4.00-5.60); RDW 14.8 % (11.9-15.9); WHITE BLOOD COUNT 4.5 K/mm3 (4.0-10.0)
[2019-10-09 13:35] LABS: ALBUMIN 3.4 g/dl (3.4-5.0); BILIRUBIN,TOTAL 2.1 mg/dL (0.2-1); BLOOD UREA NITROGEN 10.9 mg/dL (7-18); CALCIUM 9.4 mg/dL (8.5-10.1); CREATININE 0.9 mg/dL (0.55-1.3); POTASSIUM 4.2 mmol/L (3.5-5.1)
[2019-10-09] MEDS: chlordiazePOXIDE HCL 10 MG CAPSULE PO PRN (17:47)
[2019-10-09] MEDS: THIAMINE HCL 100 MG TABLET (FP) PO SCH (22:36)
[2019-10-09] MEDS: MELATONIN 5 MG TABLETS PO SCH (22:36)
[2019-10-10] MEDS: chlordiazePOXIDE 5 MG CAPSULE PO SCH ×3 (05:01→22:05)
[2019-10-10] MEDS: hydrOXYzine PAMOATE 25 MG CAPSULE (FP) PO SCH ×5 (05:05→22:05)
[2019-10-10] MEDS: PRENATAL VITAMINS W/ FOLIC ACID TABLET (FP) PO SCH (10:15)
[2019-10-10] MEDS: NICOTINE 21 MG/24 HOURS TOPICAL PATCH TD SCH (10:15)
[2019-10-10] MEDS: NICOTINE POLACRILEX 2 MG GUM BUC PRN (10:15)
--- NOTE | 2019-10-10 11:01 | PN ---
S CIWA - CIWA Score Nausea/Vomitin-No Nausea/No Vomiting Muscle Tremors: None Anxiety: 1-Mildly Anxious Agitation: 1-Slight > Activity Paroxysmal Sweats: No Perspiration Orientation: 0-Oriented Tacttile Disturbances: 0-None Auditory Disturbances: 0-None Visual Disturbances: 0-None Headache: 0-None Present CIWA-Ar Total Score: 2 BHS Progress Note (SOAP) Subjective: No complaints Objective: 10/10/19 11:00 Laboratory Tests 10/09/19 10/09/19 10/09/19 09:00 09:00 09:00 WBC 4.5 RBC 4.72 Hgb 14.8 Hct 43.7 MCV 92.8 MCH 31.3 MCHC 33.8 RDW 14.8 Plt Count 220 MPV 9.8 Sodium 142 Potassium 4.2 Chloride 107 Carbon Dioxide 29 Anion Gap 5 L BUN 10.9 Creatinine 0.9 Est GFR (CKD-EPI)AfAm 107.97 Est GFR (CKD-EPI)NonAf 93.16 Random Glucose 139 H Calcium 9.4 Total Bilirubin 2.1 H AST 18 ALT 19 Alkaline Phosphatase 79 Total Protein 6.0 L Albumin 3.4 RPR Titer Nonreactive Vital Signs - 24 hr 10/09/19 10/09/19 10/09/19 12:51 16:49 20:55 Temperature 97.0 F L 97.0 F L 97.1 F L Pulse Rate 93 H 69 79 Respiratory 17 18 18 Rate Blood Pressure 107/78 113/78 100/70 10/10/19 10/10/19 10/10/19 00:37 03:32 06:19 Temperature 97.0 F L Pulse Rate 61 Respiratory 16 18 18 Rate Blood Pressure 130/84 10/10/19 08:44 Temperature 96.7 F L Pulse Rate 73 Respiratory 16 Rate Blood Pressure 110/71 PE Gnl: WDWN, in bed, then up MS: awake alert, talkative Ext: left wrist/forearm casted Motor: grossly nl Assessment: 10/10/19 11:01 1. Alcohol use disorder 2. left wrsit fx Sep 06 Plan: 1. Librium withdrawal protocol 2. follow up orthopedics
[2019-10-10] MEDS: THIAMINE HCL 100 MG TABLET (FP) PO SCH (22:05)
[2019-10-10] MEDS: MELATONIN 5 MG TABLETS PO SCH (22:06)
[2019-10-11] MEDS ORDERED: chlordiazePOXIDE HCL 10 MG CAPSULE PO PRN
[2019-10-11] MEDS ORDERED: chlordiazePOXIDE HCL 10 MG CAPSULE PO SCH (05:00)
[2019-10-11] MEDS: hydrOXYzine PAMOATE 25 MG CAPSULE (FP) PO SCH (05:34)
[2019-10-11 06:27] VITALS: BP 105/78; PULSE 63; TEMP 96.5
--- NOTE | 2019-10-11 14:46 | DS ---
[facility] Detox Discharge Summary Admission Date: 10/08/19 Discharge Date: 10/11/19 - History Present History: Alcohol Dependence, Cannabis Dependence, Cocaine Dependence Additional Comments: Pt is medically cleared and discharged today. Pt completed the detox protocol. Pt is encouraged to follow-up with an outpatient CD program and also to follow- up with his pmd. Pt verbalized understanding of the information given. Pt is alert and oriented x3 and in no acute respiratory distress. Pertinent Past History: h/o alcohol, cocaine, and cannabis use disorder. - Physical Exam Results Vital Signs: Vital Signs Temperature 96.5 F L 10/11/19 06:26 Pulse Rate 63 10/11/19 06:26 Respiratory Rate 16 10/11/19 06:30 Blood Pressure 105/78 10/11/19 06:26 O2 Sat by Pulse Oximetry (%) Laboratory Last Values WBC 4.5 K/mm3 (4.0-10.0) 10/09/19 09:00 RBC 4.72 M/mm3 (4.00-5.60) 10/09/19 09:00 Hgb 14.8 GM/dL (11.7-16.9) 10/09/19 09:00 Hct 43.7 % (35.4-49) 10/09/19 09:00 MCV 92.8 fl (80-96) 10/09/19 09:00 MCH 31.3 pg (25.7-33.7) 10/09/19 09:00 MCHC 33.8 g/dl (32.0-35.9) 10/09/19 09:00 RDW 14.8 % (11.9-15.9) 10/09/19 09:00 Plt Count 220 K/MM3 (134-434) 10/09/19 09:00 MPV 9.8 fl (7.5-11.1) 10/09/19 09:00 Sodium 142 mmol/L (136-145) 10/09/19 09:00 Potassium 4.2 mmol/L (3.5-5.1) 10/09/19 09:00 Chloride 107 mmol/L (98-107) 10/09/19 09:00 Carbon Dioxide 29 mmol/L (21-32) 10/09/19 09:00 Anion Gap 5 MMOL/L (8-16) L 10/09/19 09:00 BUN 10.9 mg/dL (7-18) 10/09/19 09:00 Creatinine 0.9 mg/dL (0.55-1.3) 10/09/19 09:00 Est GFR (CKD-EPI)AfAm 107.97 10/09/19 09:00 Est GFR (CKD-EPI)NonAf 93.16 10/09/19 09:00 Random Glucose 139 mg/dL (74-106) H 10/09/19 09:00 Calcium 9.4 mg/dL (8.5-10.1) 10/09/19 09:00 Total Bilirubin 2.1 mg/dL (0.2-1) H 10/09/19 09:00 AST 18 U/L (15-37) 10/09/19 09:00 ALT 19 U/L (13-61) 10/09/19 09:00 Alkaline Phosphatase 79 U/L (45-117) 10/09/19 09:00 Total Protein 6.0 g/dl (6.4-8.2) L 10/09/19 09:00 Albumin 3.4 g/dl (3.4-5.0) 10/09/19 09:00 RPR Titer Nonreactive (NONREACTIVE) 10/09/19 09:00 Labs noted. Pertinent Admission Physical Exam Findings: withdrawal symptoms. - Treatment Hospital Course: Detox Protocol Followed, Detoxed Safely, Responded well, Discharged Condition Good - Medication Discharge Medications: Ambulatory Orders NK [No Known Home Medication] 03/18/19 - Diagnosis (1) Alcohol dependence with uncomplicated withdrawal Status: Chronic (2) BPH (benign prostatic hyperplasia) Status: Chronic Qualifiers: Lower urinary tract symptom presence: symptoms present Lower urinary tract symptom detail: urinary hesitancy Qualified Code(s): N40.1 - Benign prostatic hyperplasia with lower urinary tract symptoms; R39.11 - Hesitancy of micturition (3) COPD (chronic obstructive pulmonary disease) Status: Chronic Qualifiers: COPD type: unspecified COPD Qualified Code(s): J44.9 - Chronic obstructive pulmonary disease, unspecified (4) Cannabis abuse Status: Chronic (5) HTN (hypertension) Status: Chronic Qualifiers: Hypertension type: essential hypertension Qualified Code(s): I10 - Essential (primary) hypertension (6) Nicotine dependence Status: Chronic Qualifiers: Nicotine product type: cigarettes - AMA Did Patient Leave Against Medical Advice: No
[2019-10-12] MEDS ORDERED: chlordiazePOXIDE HCL 10 MG CAPSULE PO ONE (05:00)
== END 2019-10-11 09:03 | disposition other institution (70) | DRG 774 ==
LOC: YASAS 13:07 → Y3N 16:25
PROVIDERS: ADMIT Allergy & Immunology; ATTEND Allergy & Immunology
PROC: HZ2ZZZZ Detoxification Services for Substance Abuse Treatment (ICD-10-PCS; principal; 2019-10-08)
DX: F10.230 Alcohol dependence with withdrawal, uncomplicated (principal); F14.20 Cocaine dependence, uncomplicated; F12.20 Cannabis dependence, uncomplicated; F17.210 Nicotine dependence, cigarettes, uncomplicated; I10 Essential (primary) hypertension; J44.9 Chronic obstructive pulmonary disease, unspecified; N40.1 Benign prostatic hyperplasia with lower urinary tract symptoms; R39.11 Hesitancy of micturition; Z87.828 Personal history of other (healed) physical injury and trauma; S62.122D Displaced fracture of lunate [semilunar], left wrist, subsequent encounter for fracture with routine healing; W19.XXXD Unspecified fall, subsequent encounter
CPT/HCPCS: 36415; 80053; 85027; 86593; Q0162

== ENCOUNTER 2022-07-25 20:34 | Inpatient (IN) | payer OTHER ==
[2022-07-25 21:20] VITALS: BMI 18.2
[2022-07-25] MEDS ORDERED: BISMUTH SUBSALICYLATE 524 MG/30 ML PO PRN (21:41)
[2022-07-25] MEDS ORDERED: ONDANSETRON *ODT* 4 MG TABLET SL PRN (21:41)
[2022-07-25] MEDS ORDERED: LOPERAMIDE HCL 2 MG CAPSULE PO PRN (21:41)
[2022-07-25] MEDS ORDERED: guaiFENesin 200 MG/10 ML 10 ML UNIT-DOSE CUPS PO PRN (21:41)
[2022-07-25] MEDS ORDERED: P-EPHED 60MG/TRIPROLIDI 2.5MG TABLET PO PRN (21:41)
[2022-07-25] MEDS ORDERED: BENZOCAINE/MENTHOL (CHLORASEPTIC ) LOZENGE MM PRN (21:41)
[2022-07-25] MEDS ORDERED: DICYCLOMINE HCL 10 MG CAPSULE PO PRN (21:41)
[2022-07-25] MEDS ORDERED: POLYETHYLENE GLYCOL (HEALTHYLAX) 3350 17 GM PACKET PO PRN (21:41)
[2022-07-25] MEDS ORDERED: MAGNESIUM HYDROX 2400MG/30ML ORAL SUSPENSION 30 ML CUP PO PRN (21:41)
[2022-07-25] MEDS ORDERED: MELATONIN 5 MG TABLETS PO PRN (21:41)
[2022-07-25] MEDS ORDERED: MAG HYDROX/AL HYDROX/SIMETH 30 ML UNIT-DOSE CUP PO PRN (21:41)
[2022-07-25] MEDS: NAPROXEN 500 MG TABLET PO SCH (22:55)
[2022-07-25] MEDS: chlordiazePOXIDE HCL 25 MG CAPSULE PO SCH (22:55)
[2022-07-25] MEDS: METHOCARBAMOL 500 MG TABLET PO PRN (22:55)
[2022-07-25] MEDS: THIAMINE HCL 100 MG TABLET (FP) PO SCH (23:11)
[2022-07-26] MEDS: chlordiazePOXIDE HCL 25 MG CAPSULE PO SCH ×4 (05:51→22:11)
[2022-07-26] MEDS: METHOCARBAMOL 500 MG TABLET PO PRN ×2 (05:52→15:30)
[2022-07-26] MEDS: NAPROXEN 500 MG TABLET PO SCH ×2 (10:11→22:11)
[2022-07-26] MEDS: PRENATAL VITAMINS W/ FOLIC ACID TABLET (FP) PO SCH (10:15)
[2022-07-26] MEDS ORDERED: NICOTINE 10 MG CARTRIDGE (INHALER) IH PRN (10:57)
[2022-07-26 11:48] LABS: HEMATOCRIT 46.5 % (35.4-49); HEMOGLOBIN 15.1 GM/dL (11.7-16.9); MCH 30.1 pg (25.7-33.7); MCHC 32.5 g/dl (32.0-35.9); MEAN CELL VOLUME 92.5 fl (80-96); MEAN PLT VOLUME 8.6 fl (7.5-11.1); PLATELET COUNT 339 10^3/uL (134-434); RBC 5.03 M/mm3 (4.00-5.60); WHITE BLOOD COUNT 3.9 K/mm3 (4.0-10.0)
[2022-07-26 12:00] LABS: CALCIUM 9.5 mg/dL (8.5-10.1)
[2022-07-26 12:01] LABS: ALBUMIN 3.9 g/dl (3.4-5.0); BLOOD UREA NITROGEN 5.8 mg/dL (7-18)
[2022-07-26 12:04] LABS: CREATININE 0.7 mg/dL (0.55-1.3)
[2022-07-26 12:05] LABS: BILIRUBIN,TOTAL 2.4 mg/dL (0.2-1)
[2022-07-26] MEDS: chlordiazePOXIDE HCL 25 MG CAPSULE PO PRN (15:36)
[2022-07-26] MEDS: NICOTINE POLACRILEX 2 MG GUM BUC PRN (20:27)
[2022-07-26] MEDS: THIAMINE HCL 100 MG TABLET (FP) PO SCH (22:11)
[2022-07-27] MEDS: chlordiazePOXIDE HCL 25 MG CAPSULE PO PRN (01:39)
[2022-07-27] MEDS: NICOTINE POLACRILEX 2 MG GUM BUC PRN ×2 (03:12→13:30)
[2022-07-27] MEDS: METHOCARBAMOL 500 MG TABLET PO PRN ×2 (03:12→12:04)
[2022-07-27] MEDS: chlordiazePOXIDE HCL 25 MG CAPSULE PO SCH ×2 (05:24→10:03)
[2022-07-27 09:56] VITALS: RESP 18
[2022-07-27] MEDS: NAPROXEN 500 MG TABLET PO SCH (09:56)
[2022-07-27] MEDS: PRENATAL VITAMINS W/ FOLIC ACID TABLET (FP) PO SCH (09:56)
[2022-07-27 13:47] VITALS: BP 143/94; PULSE 87; TEMP 96.6
[2022-07-27] MEDS ORDERED: ALBUTEROL SO4 HFA INHALER IH PRN (14:21)
[2022-07-28] MEDS ORDERED: chlordiazePOXIDE HCL 10 MG CAPSULE PO PRN
[2022-07-28] MEDS ORDERED: chlordiazePOXIDE HCL 10 MG CAPSULE PO SCH (05:00)
[2022-07-29] MEDS ORDERED: chlordiazePOXIDE HCL 10 MG CAPSULE PO SCH (05:00)
[2022-07-30] MEDS ORDERED: chlordiazePOXIDE HCL 10 MG CAPSULE PO ONE (05:00)
== END 2022-07-27 17:05 | disposition left against medical advice (07) | DRG 770 ==
LOC: YASAS 20:34 → Y6N 22:30
PROVIDERS: ADMIT Allergy & Immunology; ATTEND Surgery
PROC: HZ2ZZZZ Detoxification Services for Substance Abuse Treatment (ICD-10-PCS; principal; 2022-07-25)
DX: F10.230 Alcohol dependence with withdrawal, uncomplicated (principal); F10.220 Alcohol dependence with intoxication, uncomplicated; R00.0 Tachycardia, unspecified; Z91.013 Allergy to seafood
CPT/HCPCS: 36415; 80053; 85027; 86780; C9803-CS; U0003; U0005